=== PATIENT | female | born 1975 | race Caucasian/White ===

== ENCOUNTER → 2016-09-15 | Outpatient (CLI) | payer OTHER ==
--- NOTE | 2016-09-15 15:38 | NM ---
EXAMINATION TYPE: NM hepatobiliary w EF DATE OF EXAM: 09/15/2016 3:12 PM COMPARISON: Ultrasound abdomen October 14, 2013 HISTORY: Right upper quadrant pain per order. Additional symptoms of epigastric pain, heartburn and r eflux-like symptoms, nausea and diminished appetite all per patient. TECHNIQUE: After the intravenous administration of 5.1 mCi Tc 99m Mebrofenin hepatobiliary scintigrap hy is performed. Immediate images post injection. FINDINGS: There is satisfactory initial accumulation of tracer by the liver. The gallbladder is visualized wit hin 10 minutes. The small bowel activity is noted within 35 minutes. At one hour 8 ounces of oral e nsure plus is given to mimic CCK and gallbladder ejection fraction is calculated at 41 %, in the norm al range. Therefore there is no scintigraphic evidence of cystic or common bile duct obstruction to suggest acute cholecystitis or gallbladder dyskinesia. IMPRESSION: Exam is within normal limits.
== END | disposition home or self-care (01) ==
LOC: RADNMMAIN 13:01
PROVIDERS: ATTEND Internal Medicine
DX: R10.11 Right upper quadrant pain (principal)
CPT/HCPCS: 78226; A9537

== ENCOUNTER → 2016-11-21 | Outpatient (CLI) | payer OTHER | LOC: LABWHC1 14:11 | PROVIDERS: ATTEND Internal Medicine Endocrinology, Diabetes & Metabolism | DX: E03.9 Hypothyroidism, unspecified (principal) | CPT/HCPCS: 36415; 84439; 84443 ==

== ENCOUNTER → 2016-12-22 | Day surgery (SDC) | payer OTHER ==
[~2016-12-22] MED LIST: ALPRAZolam 0.25 MG TAB ONE; LIDOCAINE 1% INJ 10MG/ML (20 ML MDV) ONE; LIDOCAINE 1%-EPI 1:100,000 20 ML VIAL ONE; SODIUM BICARB 4% 5 ML VIAL (0.48 MEQ/ML) ONE
--- NOTE | 2016-12-22 09:46 | USB ---
EXAMINATION TYPE: US biopsy breast VAD LT DATE OF EXAM: 12/22/2016 8:42 AM CLINICAL HISTORY: R92.8 Abn mammogram. TECHNIQUE: Ultrasound guided core biopsy of left breast. COMPARISON: Previous ultrasound examination dated 12/15/2016. FINDINGS: The procedure of ultrasound guided core biopsy was explained to the patient. Benefits, alternatives, and risks were discussed. An informed consent was then obtained. The patient was placed in supine positioning for imaging and for the procedure. The overlying skin was prepped and draped in usual sterile fashion. Lidocaine buffered with bicarbonate was used as anesthetic into the skin and subcutaneous tissue up to area of concern in the left breast. A fidel was made with surgical scalpel. Under ultrasound guidance, a 12-gauge vacuum assisted biopsy gun device was used to obtain 8 core samples. Following this, a biopsy clip was left in lesion. The patient tolerated the procedure well without any immediate complication. The patient was kept in the radiology department for short stay after the procedure and then discharged home in stable condition. IMPRESSION: SUCCESSFUL, UNCOMPLICATED ULTRASOUND GUIDED CORE BIOPSY OF AREA OF CONCERN IN THE LEFT BREAST, FULL PATHOLOGY RESULTS TO FOLLOW. Pathology Results: Benign BREAST, LEFT, STEREOTACTIC CORE BIOPSY: FIBROCYSTIC CHANGE, STROMAL FIBROSIS, CYST FORMATION, APOCRINE METAPLASIA, ADENOSIS, COLUMNAR CELL CHANGE AND DUCT HYPERPLASIA. FEATURES CONSISTENT WITH FIBROADENOMA. Recommendation Follow up mammogram of the left breast in 6 months. ALBAN
== END ==
LOC: RADUSWWP 07:16
PROVIDERS: ATTEND Surgery
DX: N60.02 Solitary cyst of left breast (principal); N60.32 Fibrosclerosis of left breast; N60.82 Other benign mammary dysplasias of left breast; N60.22 Fibroadenosis of left breast; N60.92 Unspecified benign mammary dysplasia of left breast; D24.2 Benign neoplasm of left breast
CPT/HCPCS: 88305; 19083; J2001

== ENCOUNTER → 2017-02-06 | Outpatient (CLI) | payer OTHER | END | disposition home or self-care (01) | LOC: LABWHC1 09:33 | PROVIDERS: ATTEND Internal Medicine Endocrinology, Diabetes & Metabolism | DX: E04.2 Nontoxic multinodular goiter (principal) | CPT/HCPCS: 36415; 84443 ==

== ENCOUNTER → 2017-07-17 | Outpatient (CLI) | payer OTHER | END | disposition home or self-care (01) | LOC: LABWHC1 14:29 | PROVIDERS: ATTEND Internal Medicine Endocrinology, Diabetes & Metabolism | DX: E03.8 Other specified hypothyroidism (principal) | CPT/HCPCS: 36415; 84443 ==

== ENCOUNTER → 2018-01-16 | Outpatient (CLI) | payer BC | END | disposition home or self-care (01) | LOC: LABWHC1 13:57 | PROVIDERS: ATTEND Internal Medicine Endocrinology, Diabetes & Metabolism | DX: E03.8 Other specified hypothyroidism (principal) | CPT/HCPCS: 36415; 84443 ==

== ENCOUNTER → 2018-04-18 | Outpatient (CLI) | payer BC ==
[2018-04-18 11:49] LABS: T4, Free (Free Thyroxine) 1.24 ng/dL (0.78-2.19)
== END | disposition home or self-care (01) ==
LOC: LABWHC1 10:23
PROVIDERS: ATTEND Internal Medicine Endocrinology, Diabetes & Metabolism
DX: E04.1 Nontoxic single thyroid nodule (principal)
CPT/HCPCS: 36415; 84439; 84443

== ENCOUNTER → 2018-07-11 | Outpatient (CLI) | payer BC ==
--- NOTE | 2018-07-11 14:43 | MM ---
Reason for exam: additional evaluation requested from prior study. Last mammogram was performed 1 year ago. History: Family history of breast cancer in cousin at age 47. Benign US biopsy breast VAD LT of the left breast, December 22, 2016. Took hormonal contraceptives for 2 years beginning at age 41. Physical Findings: Nurse did not find any significant physical abnormalities on exam. MG 3D Diag Mammo W/Cad MAY Bilateral CC and MLO view(s) were taken. Prior study comparison: July 05, 2017, bilateral MG diagnostic mammo w CAD MAY. July 06, 2016, bilateral MG work up mamm w CAD BILAT. The breast tissue is heterogeneously dense. This may lower the sensitivity of mammography. Manage breast painon a clinical basis. These results were verbally communicated with the patient and result sheet given to the patient on 07/11/18. No significant changes when compared with prior studies. ASSESSMENT: Benign, BI-RAD 2 RECOMMENDATION: Routine screening mammogram of both breasts in 1 year.
== END | disposition home or self-care (01) ==
LOC: RADMAMWWP 13:26
PROVIDERS: ATTEND Internal Medicine
DX: R92.8 Other abnormal and inconclusive findings on diagnostic imaging of breast (principal)
CPT/HCPCS: 77062; 77066

== ENCOUNTER → 2018-09-30 | Outpatient (CLI) | payer BC | END | disposition home or self-care (01) | LOC: LABWHC1 13:17 | PROVIDERS: ATTEND Internal Medicine Endocrinology, Diabetes & Metabolism | DX: E03.8 Other specified hypothyroidism (principal) | CPT/HCPCS: 36415; 84443 ==

== ENCOUNTER → 2018-10-07 | Outpatient (CLI) | payer BC ==
--- NOTE | 2018-10-07 07:44 | US ---
EXAMINATION TYPE: US thyroid st tissue head/neck DATE OF EXAM: 10/07/2018 COMPARISON: CLINICAL HISTORY: E04.1 Nontoxic single thyroid nodule. Follow up nodules. No hx of bx. On thyroid meds. GLAND SIZE: Right Lobe: 5.1 x 1.9 x 1.1 cm Overall Parenchyma: homogenous Left Lobe: 5.2 x 1.7 x 1.2 cm Overall Parenchyma: homogeneous Isthmus Thickness: 0.3 cm NODULES RIGHT: # of nodules measured on right: 2 1. 1.0 X 0.9 x 0.7 cm hypoechoic nodule at the upper pole with well-defined margins. This nodule i s wider than tall and shows intranodular vascularity. Prior size: 0.8 x 0.6 x 0.8 cm 2. 0.4 X 0.4 x 0.2 cm cystic nodule at the mid pole with well-defined margins. This nodule is wider than tall and shows no intranodular vascularity. Prior size: 0.2 cm LEFT: # of nodules measured on left: 0 ISTHMUS: # of nodules measured in the isthmus: 0 1. Previous nodule not visualized on today's exam Bilateral neck scanned, no evidence of lymphadenopathy. Bilateral enlarged thyroid lobes. IMPRESSION: 1. Bilateral thyroid enlargement. 2. Thyroid nodules nonspecific as discussed above.
== END | disposition home or self-care (01) ==
LOC: RADUSWWP 07:04
PROVIDERS: ATTEND Internal Medicine Endocrinology, Diabetes & Metabolism
DX: E04.2 Nontoxic multinodular goiter (principal)
CPT/HCPCS: 76536

== ENCOUNTER → 2018-12-03 | Outpatient (CLI) | payer BC ==
--- NOTE | 2018-12-03 13:12 | XR ---
EXAMINATION TYPE: XR chest 2V DATE OF EXAM: 12/03/2018 COMPARISON: NONE HISTORY: Chest pain TECHNIQUE: Frontal and lateral views of the chest are obtained. FINDINGS: There is no focal air space opacity. No evidence for pneumothorax. No pleural effusion. The cardiac silhouette size is within normal limits. The osseous structures are grossly intact. IMPRESSION: 1. No acute cardiopulmonary process.
[2018-12-04 14:22] LABS: Alt. alternata IgE Class CLASS 0; Alternaria alternata IgE <0.35 kU/L (<0.35); Asperg. fumagatus IgE <0.35 kU/L (<0.35); Asperg. fumagatus IgE Class CLASS 0; Candida albicans IgE Class CLASS 0; Clad herbarum IgE <0.35 kU/L (<0.35); Latex IgE Class CLASS 0; Mucor racemosus IgE <0.35 kU/L (<0.35); Mucor racemosus IgE Class CLASS 0; Penicillium chrysogenum IgE <0.35 kU/L (<0.35); Penicillium chrysogenum IgE Cl CLASS 0
== END | disposition home or self-care (01) ==
LOC: LABWHC1 12:33
PROVIDERS: ATTEND Internal Medicine Sleep Medicine
DX: R05 Cough (principal); B44.1 Other pulmonary aspergillosis
CPT/HCPCS: 36415; 71046; 82785; 86001; 86003; 86606; 86609

== ENCOUNTER → 2019-01-02 | Outpatient (CLI) | payer BC ==
[2019-01-02 19:53] LABS: T4, Free (Free Thyroxine) 1.1 ng/dL (0.80-1.80)
== END | disposition home or self-care (01) ==
LOC: LABWHC1 12:09
PROVIDERS: ATTEND Internal Medicine Endocrinology, Diabetes & Metabolism
DX: E04.1 Nontoxic single thyroid nodule (principal)
CPT/HCPCS: 36415; 84439; 84443

== ENCOUNTER → 2019-01-09 | Outpatient (CLI) | payer BC ==
--- NOTE | 2019-01-09 12:20 | MM ---
Reason for exam: clinical finding. Last mammogram was performed 6 months ago. History: Family history of breast cancer in cousin at age 47. Benign US biopsy breast VAD LT of the left breast, December 22, 2016. Took hormonal contraceptives for 2 years beginning at age 41. Physical Findings: Nurse did not find any significant physical abnormalities on exam. MG 3D Diag Mammo W/Cad MAY Bilateral CC and MLO view(s) were taken. XCCL view(s) were taken of the left breast. Prior study comparison: July 11, 2018, bilateral MG 3d diag mammo w/cad MAY. July 05, 2017, bilateral MG diagnostic mammo w CAD MAY. The breast tissue is extremely dense which could obscure a lesion on mammography. There are benign appearing round oval circumscribed stable right masses, prior history of cysts. Left biopsy marker. These results were verbally communicated with the patient and result sheet given to the patient on 01/09/19. ASSESSMENT: Benign, BI-RAD 2 RECOMMENDATION: Routine screening mammogram of both breasts in 1 year. Manage patient on a clinical basis.
== END | disposition home or self-care (01) ==
LOC: RADMAMWWP 10:56
PROVIDERS: ATTEND Obstetrics & Gynecology
DX: N64.4 Mastodynia (principal)
CPT/HCPCS: 77062; 77066

== ENCOUNTER → 2019-06-26 | Outpatient (CLI) | payer OTHER ==
[2019-06-26 09:53] LABS: T4, Free (Free Thyroxine) 0.93 ng/dL (0.78-2.19)
== END | disposition home or self-care (01) ==
LOC: LABWHC1 09:01
PROVIDERS: ATTEND Internal Medicine Endocrinology, Diabetes & Metabolism
DX: E03.8 Other specified hypothyroidism (principal); E04.1 Nontoxic single thyroid nodule
CPT/HCPCS: 36415; 84439; 84443

== ENCOUNTER → 2019-07-18 | Day surgery (SDC) | payer OTHER ==
[2019-07-16 11:10] VITALS: BMI 27.2
[~2019-07-18] MED LIST changes: -ALPRAZolam 0.25 MG TAB ONE; +LACTATED RINGERS 1,000 ML IV SCH; +LIDOCAINE 1% 20 ML VIAL (10MG/ML) FOR IV START INTRADERMA ONE; -LIDOCAINE 1%-EPI 1:100,000 20 ML VIAL ONE; +PROPOFOL 10 MG/ML 20 ML VIAL IV ONE; -SODIUM BICARB 4% 5 ML VIAL (0.48 MEQ/ML) ONE
[2019-07-18 09:38] VITALS: TEMP 98.3
--- NOTE | 2019-07-18 10:19 | P.GSHP ---
History of Present Illness H&P Date: 07/18/19 Chief Complaint: GERD, dysphagia This is a 44-year-old female who's had complaints of GERD and dysphagia. Patient rents today for EGD. Past Medical History Past Medical History: Thyroid Disorder Additional Past Medical History / Comment(s): SEASONAL ALLERGIES. HAS "CHOKING SENSATION" IN THROAT History of Any Multi-Drug Resistant Organisms: None Reported Past Surgical History: Hysterectomy Past Anesthesia/Blood Transfusion Reactions: No Reported Reaction Smoking Status: Former smoker - Past Family History Mother Family Medical History: No Reported History Medications and Allergies Home Medications Medication Instructions Recorded Confirmed Type Levothyroxine Sodium [Synthroid] 12.5 mcg PO DAILY 07/16/19 07/16/19 History Levothyroxine Sodium [Synthroid] 25 mcg PO DAILY 07/16/19 07/18/19 History Liothyronine Sodium [Cytomel] 5 mcg PO DAILY 07/16/19 07/16/19 History Montelukast [Singulair] 10 mg PO HS 07/16/19 07/18/19 History Topiramate [Topamax] 25 mg PO BID 07/16/19 07/18/19 History Allergies Allergy/AdvReac Type Severity Reaction Status Date / Time No Known Allergies Allergy Verified 07/16/19 11:03 Surgical - Exam Vital Signs Temp Pulse Resp BP Pulse Ox 98.3 F 69 16 122/64 98 07/18/19 09:28 07/18/19 09:28 07/18/19 09:28 07/18/19 09:28 07/18/19 09:28 - General well developed, well nourished, no distress - Eyes PERRL - ENT normal pinna - Neck no masses - Respiratory normal expansion - Cardiovascular Rhythm: regular - Abdomen Abdomen: soft, non tender Assessment and Plan Assessment: GERD, dysphagia. We'll perform EGD.
--- NOTE | 2019-07-18 10:28 | P.OP ---
Date of Procedure: 07/18/19 Preoperative Diagnosis: Dysphagia Postoperative Diagnosis: Mild antral gastritis Mild esophagitis Procedure(s) Performed: EGD Anesthesia: MAC Surgeon: Adiel Perera Pathology: other (Antrum, esophagus) Condition: stable Disposition: PACU Description of Procedure: The patient's placed on the endoscopy table in the lateral position. She received IV sedation. The gastroscope placed oropharynx passed in the esophagus and stomach. Scope was then placed through the pylorus. The first and second portion duodenum appeared normal. Scope was then brought back the antrum and this appeared mildly inflamed. A biopsy was performed. The scope was then retroflexed remainder stomach appeared normal. The GE junction was at 40 cm. There is no evidence of any significant hiatal hernia. The distal esophagus appeared mildly inflamed a biopsies performed. The proximal esophagus appeared normal. Scope was withdrawn for patient.
[2019-07-18 10:52] VITALS: BP 113/79; PULSE 79; RESP 18
--- NOTE | 2019-07-18 13:52 | NM ---
EXAMINATION TYPE: NM hepatobiliary w CCK DATE OF EXAM: 07/18/2019 COMPARISON: NONE HISTORY: 44-year-old female with GERD, indigestion TECHNIQUE: After the intravenous administration of 5.2 mCi Tc 99m Mebrofenin hepatobiliary scintigrap hy is performed. Immediate images post injection. FINDINGS: There is satisfactory initial accumulation of tracer by the liver. The gallbladder is visualized wit hin 10 minutes. The small bowel activity is noted after Kinevac administration after the initial one hour. Patient was injected with 1.6 mcg of Kinevac, and gallbladder ejection fraction is calculated at 27 %, diminished. IMPRESSION: 1. No scintigraphic evidence for acute cholecystitis. 2. Diminished gallbladder ejection fraction can be seen in the setting of chronic cholecystitis and b iliary dyskinesia.
== END ==
LOC: ORWHC2ENDO 08:56
PROVIDERS: ATTEND Surgery
DX: K29.50 Unspecified chronic gastritis without bleeding (principal); B96.81 Helicobacter pylori [H. pylori] as the cause of diseases classified elsewhere; K21.0 Gastro-esophageal reflux disease with esophagitis; R94.8 Abnormal results of function studies of other organs and systems; E07.9 Disorder of thyroid, unspecified; J45.909 Unspecified asthma, uncomplicated; F39 Unspecified mood [affective] disorder; Z90.710 Acquired absence of both cervix and uterus; Z87.891 Personal history of nicotine dependence; Z79.899 Other long term (current) drug therapy; Z79.890 Hormone replacement therapy
CPT/HCPCS: 43239; 88305; 88342; 78227; A9537; J2805; J2001; J2704

== ENCOUNTER → 2019-08-12 | Outpatient (CLI) | payer OTHER ==
[2019-08-12 18:02] LABS: Basophils % (A) 0 %; Eosinophils # (A) 0.1 k/uL (0-0.7); Eosinophils % (A) 1 %; HCT 41.3 % (34.0-46.0); HGB 14.4 gm/dL (11.4-16.0); Lymphocytes # (A) 2.2 k/uL (1.0-4.8); Lymphocytes % (A) 37 %; MCH 32.3 pg (25.0-35.0); MCHC 34.9 g/dL (31.0-37.0); MCV 92.5 fL (80.0-100.0); Mean Platelet Volume 6.5; Monocytes # (A) 0.4 k/uL (0-1.0); Monocytes % (A) 6 %; Neutrophils # (A) 3.3 k/uL (1.3-7.7); Neutrophils % (A) 54 %; Platelet Count 258 k/uL (150-450); RBC 4.46 m/uL (3.80-5.40); RDW 12.1 % (11.5-15.5)
== END | disposition home or self-care (01) ==
LOC: LABWHC1 16:38
PROVIDERS: ATTEND Internal Medicine Sleep Medicine
DX: R06.02 Shortness of breath (principal)
CPT/HCPCS: 36415; 85025

== ENCOUNTER 2019-08-18 06:32 | Day surgery (SDC) | payer OTHER ==
[2019-08-14 10:55] VITALS: BMI 25.0
[~2019-08-18 06:32] MED LIST changes: +DEXAMETHASONE SOD PHOSPHATE 10 MG/ML 1 ML VIAL IV ONE; +HEPARIN SODIUM,PORCINE 5,000 UNIT/ML 1 ML VIAL SQ ONE; -LIDOCAINE 1% 20 ML VIAL (10MG/ML) FOR IV START INTRADERMA ONE; +LIDOCAINE 1% 20 ML VIAL (10MG/ML) FOR IV START INTRADERMA PRN; -LIDOCAINE 1% INJ 10MG/ML (20 ML MDV) ONE; +MIDAZOLAM 2 MG/2 ML VIAL IV PRN; +ONDANSETRON 4 MG/2 ML VIAL IVP ONE; -PROPOFOL 10 MG/ML 20 ML VIAL IV ONE; +SCOPOLAMINE 1.5MG/72HR PATCH TRANSDERM ONE
[2019-08-18] MEDS ORDERED: NEOSTIGMINE 1 MG/ML 10 ML VIAL ONE (07:48)
[2019-08-18] MEDS ORDERED: KETOROLAC 30 MG/ML 1 ML VIAL ONE (07:48)
[2019-08-18] MEDS ORDERED: MIDAZOLAM 2 MG/2 ML VIAL ONE (07:48)
[2019-08-18] MEDS ORDERED: SUCCINYLCHOLINE CHLORIDE 100 MG/5 ML SYR IV ONE (07:48)
[2019-08-18] MEDS ORDERED: LIDOCAINE 1% INJ 10MG/ML (20 ML MDV) ONE (07:48)
[2019-08-18] MEDS ORDERED: fentaNYL (PF) 50 MCG/ML 2 ML AMP ONE (07:48)
[2019-08-18] MEDS ORDERED: GLYCOPYRROLATE 0.2 MG/ML 2 ML VIAL ONE (07:48)
[2019-08-18] MEDS ORDERED: ROCURONIUM BROMIDE 10 MG/ML 10 ML VIAL IV ONE (07:48)
[2019-08-18] MEDS ORDERED: PROPOFOL 10 MG/ML 20 ML VIAL IV ONE (07:48)
--- NOTE | 2019-08-18 07:56 | P.GSHP ---
History of Present Illness H&P Date: 08/18/19 Chief Complaint: Right upper quadrant pain Is a 41-year-old female who presents today for laparoscopic cholestatic. Patient's echo his right upper quadrant pain. Her recent HIDA scan shows abnormal ejection fraction. Past Medical History Past Medical History: Thyroid Disorder Additional Past Medical History / Comment(s): SEASONAL ALLERGIES, recent dx. h pylori-finishing antibiotics for History of Any Multi-Drug Resistant Organisms: None Reported Past Surgical History: Hysterectomy Additional Past Surgical History / Comment(s): recent EGD Past Anesthesia/Blood Transfusion Reactions: No Reported Reaction Past Psychological History: No Psychological Hx Reported Smoking Status: Former smoker Past Alcohol Use History: Rare Additional Past Alcohol Use History / Comment(s): QUIT SMOKING 2010 Past Drug Use History: None Reported - Past Family History Mother Family Medical History: No Reported History Medications and Allergies Home Medications Medication Instructions Recorded Confirmed Type Levothyroxine Sodium [Synthroid] 12.5 mcg PO DAILY 07/16/19 08/14/19 History Levothyroxine Sodium [Synthroid] 25 mcg PO DAILY 07/16/19 08/14/19 History Liothyronine Sodium [Cytomel] 5 mcg PO DAILY 07/16/19 08/14/19 History Montelukast [Singulair] 10 mg PO HS 07/16/19 08/14/19 History Topiramate [Topamax] 25 mg PO BID 07/16/19 08/14/19 History Amoxicillin 1,000 mg PO Q12HR 08/14/19 08/14/19 History Clarithromycin [Biaxin] 500 mg PO Q12HR 08/14/19 08/14/19 History Omeprazole [PriLOSEC] 20 mg PO AC-BID 08/14/19 08/14/19 History Allergies Allergy/AdvReac Type Severity Reaction Status Date / Time No Known Allergies Allergy Verified 08/14/19 10:52 Surgical - Exam Vital Signs Temp Pulse Resp BP Pulse Ox 97.8 F 7 L 18 112/63 97 08/18/19 07:04 08/18/19 07:04 08/18/19 07:04 08/18/19 07:04 08/18/19 07:04 - General well developed, well nourished, no distress - Eyes PERRL - ENT normal pinna - Neck no masses - Respiratory normal expansion - Cardiovascular Rhythm: regular - Abdomen Abdomen: soft, non tender Assessment and Plan Assessment: Right quadrant pain Chronic cholecystitis We'll perform laparoscopic cholecystectomy.
[2019-08-18] MEDS ORDERED: BUPIVACAIN-EPI 0.25%-1:200,000 30 ML VIAL SQ ONE (08:16)
[2019-08-18 08:48] VITALS: RESP 16; TEMP 97.5
--- NOTE | 2019-08-18 08:54 | P.OP ---
Date of Procedure: 08/18/19 Preoperative Diagnosis: Cholecystitis Postoperative Diagnosis: Cholecystitis Procedure(s) Performed: Laparoscopic cholecystectomy Anesthesia: ARIANNA Surgeon: Adiel Perera Estimated Blood Loss (ml): 5 Pathology: other (Gallbladder) Condition: stable Disposition: PACU Description of Procedure: The patient was placed on the operating table. The patient received a general endotracheal tube anesthesia. The patients abdomen was prepped and draped in the usual sterile fashion. Through an infraumbilical stab incision, the fascia of the anterior abdominal wall was grasped with a pair of Kochers and then the Veress needle was placed in the peritoneal cavity. Position of the Veress needle was confirmed with positive drop test. The abdomen was then insufflated. After adequate insufflation, the 10 mm trocar was placed in the peritoneal cavity. Following this the laparoscope was placed in the peritoneal cavity. The patient was placed in the head-up, right side up position and then a 5 mm trocar was placed in the right lateral and right subcostal position under direct visualization. A 8 mm trocar was placed in the epigastric position. The gallbladder was grasped in the fundus and infundibulum. Traction on the gallbladder was placed in the lateral and the cephalad positions. The triangle of Calot was visualized.. The cystic duct was bluntly dissected until the union of the cystic duct and common bile duct was seen. A critical view of safety was achieved. The cystic duct was then divided and sealed with the Harmonic scissors. A PDS Endoloop was then placed throughout the cystic duct stump. The cystic artery divided and sealed with the Harmonic scissors. The gallbladder was then removed from the liver bed using Harmonic scissors. The gallbladder was then extracted through the epigastric port site. Operative field was checked for any bleeding spots and Harmonic scissors was used to coagulate the liver bed. The abdomen was irrigated. The trocars were removed. The skin was closed using interrupted 3-0 Vicryl suture. Dermabond dressing were applied. The patient tolerated the procedure well.
[2019-08-18] MEDS: HYDROmorphone 0.5 MG/0.5 ML SYRINGE IVP PRN ×2 (08:59→09:10)
[2019-08-18] MEDS ORDERED: LACTATED RINGERS 1,000 ML IV ONE ×2 (09:00)
[2019-08-18] MEDS ORDERED: HYDROcodone/APAP 5-325MG 1 EACH TAB PO ONE (10:22)
[2019-08-18 11:24] VITALS: BP 108/73; PULSE 78
== END 2019-08-18 11:45 | disposition home or self-care (01) ==
LOC: OR 06:32
PROVIDERS: ATTEND Surgery
DX: K81.1 Chronic cholecystitis (principal); K82.8 Other specified diseases of gallbladder; G43.909 Migraine, unspecified, not intractable, without status migrainosus; E07.9 Disorder of thyroid, unspecified; J30.2 Other seasonal allergic rhinitis; Z79.890 Hormone replacement therapy; Z79.899 Other long term (current) drug therapy; Z90.710 Acquired absence of both cervix and uterus; Z87.891 Personal history of nicotine dependence
CPT/HCPCS: 88304; 47562; J2250; J1644; J1100; J2710; J0690; J2405; J2001; J3010; J1885; J0330; J2704; J1170

== ENCOUNTER → 2020-03-25 | Outpatient (CLI) | payer OTHER ==
--- NOTE | 2020-03-26 10:14 | MM ---
Reason for exam: screening (asymptomatic). Last mammogram was performed 1 year and 2 months ago. History: Family history of breast cancer in cousin at age 47. Benign US biopsy breast VAD LT of the left breast, December 22, 2016. Took hormonal contraceptives for 2 years beginning at age 41. Physical Findings: A clinical breast exam by your physician is recommended on an annual basis and results should be correlated with mammographic findings. MG Screening Mammo w CAD Bilateral CC and MLO view(s) were taken. XCCL view(s) were taken of the right breast. Prior study comparison: January 09, 2019, bilateral MG 3d diag mammo w/cad MAY. July 11, 2018, bilateral MG 3d diag mammo w/cad MAY. The breast tissue is heterogeneously dense. This may lower the sensitivity of mammography. Stable benign calcifications. There is no discrete abnormality. No significant changes when compared with prior studies. ASSESSMENT: Benign, BI-RAD 2 RECOMMENDATION: Routine screening mammogram of both breasts in 1 year.
== END | disposition home or self-care (01) ==
LOC: RADMAMWWP 10:49
PROVIDERS: ATTEND Obstetrics & Gynecology
DX: Z12.31 Encounter for screening mammogram for malignant neoplasm of breast (principal)
CPT/HCPCS: 77067

== ENCOUNTER → 2020-04-23 | Outpatient (CLI) | payer OTHER ==
--- NOTE | 2020-04-24 05:51 | US ---
EXAMINATION TYPE: US venous doppler duplex LE RT DATE OF EXAM: 04/23/2020 2:52 PM COMPARISON: NONE CLINICAL HISTORY: 45-year-old female I82.401 DVT OF RIGHT LEG. Pain on right leg starting last night. No redness. Ankle swelling. Hx heel pain. No injury. SIDE PERFORMED: Right TECHNIQUE: The lower extremity deep venous system is examined utilizing real time linear array sonog jmi with graded compression, doppler sonography and color-flow sonography. FINDINGS: VESSELS IMAGED: External Iliac Vein (EIV) Common Femoral Vein Deep Femoral Vein Greater Saphenous Vein * Femoral Vein Popliteal Vein Small Saphenous Vein * Proximal Calf Veins (* superficial vessels) Right Leg: Negative for DVT IMPRESSION: No evidence for DVT within the right lower extremity imaged from the groin to the upper calf.
== END | disposition home or self-care (01) ==
LOC: RADUSWWP 14:35
PROVIDERS: ATTEND Podiatrist Foot & Ankle Surgery
DX: I82.401 Acute embolism and thrombosis of unspecified deep veins of right lower extremity (principal)

== ENCOUNTER → 2020-06-28 | Outpatient (CLI) | payer OTHER | END | disposition home or self-care (01) | LOC: LABWHC1 12:24 | PROVIDERS: ATTEND Internal Medicine Endocrinology, Diabetes & Metabolism | DX: E03.8 Other specified hypothyroidism (principal) | CPT/HCPCS: 36415; 84443 ==

== ENCOUNTER → 2020-07-14 | Outpatient (CLI) | payer OTHER ==
--- NOTE | 2020-07-15 07:20 | US ---
EXAMINATION TYPE: US thyroid st tissue head/neck DATE OF EXAM: 07/14/2020 COMPARISON: CLINICAL HISTORY: E04.1 Nontoxic single thyroid nodule. Follow up nodules. On thyroid meds. GLAND SIZE: Right Lobe: 4.9 x 1.8 x 1.4 cm Overall Parenchyma: homogenous Left Lobe: 5.3 x 1.8 x 1.4 cm Overall Parenchyma: homogeneous Isthmus Thickness: 0.2 cm NODULES RIGHT: # of nodules measured on right: 2 1. 1.2 X 0.9 x 0.8 cm hypoechoic nodule at the upper pole with well-defined margins. This nodule i s taller than wide and shows intranodular vascularity. Prior size: 1.0 x 0.9 x 0.7 cm. 2. 0.5 X 0.3 x 0.2 cm mixed nodule at the lower/mid pole with well-defined margins. This nodule is wider than tall and shows intranodular vascularity. Prior size: 0.4 x 0.4 x 0.2 cm LEFT: # of nodules measured on left: 0 ISTHMUS: # of nodules measured in the isthmus: 0 Bilateral neck scanned, no evidence of lymphadenopathy. IMPRESSION: Dominant nodule right lobe TR 4, follow-up in one year
== END | disposition home or self-care (01) ==
LOC: RADUSWWP 16:47
PROVIDERS: ATTEND Internal Medicine Endocrinology, Diabetes & Metabolism
DX: E04.2 Nontoxic multinodular goiter (principal)
CPT/HCPCS: 76536

== ENCOUNTER 2020-08-13 08:43 | Day surgery (SDC) | payer OTHER ==
[2020-08-13 10:16] VITALS: RESP 18; TEMP 98.3
[2020-08-13 10:54] VITALS: BP 124/75; PULSE 80
--- NOTE | 2020-08-13 14:40 | US ---
EXAMINATION TYPE: US FNA thyroid first lesion DATE OF EXAM: 08/13/2020 COMPARISON: NONE HISTORY: Thyroid nodule right. Maximal barrier technique was utilized. After informed consent, skin overlying the right right nodul e was localized with ultrasound and the overlying skin prepped and draped. Ultrasound was utilized us ing sterile technique. Lidocaine was used for local anesthesia. Five passes with a 25-gauge needle w ere made into the nodule and aspirated specimen was submitted to cytology. Following the procedure h emostasis achieved. No immediate complication. The patient discharged in stable condition. IMPRESSION: STATUS POST ULTRASOUND GUIDED FINE NEEDLE ASPIRATION OF THYROID NODULE, PATHOLOGY IS PEND ING. THIS PROCEDURE WAS PERFORMED BY THE UNDERSIGNED.
== END 2020-08-13 10:50 | disposition home or self-care (01) ==
LOC: RADPROMAIN 08:43
PROVIDERS: ATTEND Internal Medicine Endocrinology, Diabetes & Metabolism
DX: E04.1 Nontoxic single thyroid nodule (principal)
CPT/HCPCS: 10005; 88173; 88305

== ENCOUNTER → 2020-08-16 | Outpatient (CLI) | payer OTHER ==
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
== END | disposition home or self-care (01) ==
LOC: RAD 16:10
PROVIDERS: ATTEND Internal Medicine
DX: M48.07 Spinal stenosis, lumbosacral region (principal)
CPT/HCPCS: 72110

== ENCOUNTER → 2021-03-03 | Outpatient (CLI) | payer OTHER ==
--- NOTE | 2021-03-04 14:05 | US ---
EXAMINATION TYPE: US abdomen complete DATE OF EXAM: 03/03/2021 COMPARISON: 10/14/2013 CLINICAL HISTORY: R10.11 Abdominal pain. Pain gallbladder removed. EXAM MEASUREMENTS: Liver Length: 15.4 cm Gallbladder Wall: Surgically absent cm CBD: .4 cm Spleen: 10.9 cm Right Kidney: 9.0 x 3.3 x 4.1 cm Left Kidney: 11.4 x 4.4 x 3.9 cm Pancreas: Obscured by bowel gas Liver: wnl Gallbladder: Surgically absent Evidence for sonographic Hernández's sign: No CBD: wnl Spleen: wnl Right Kidney: No hydronephrosis or masses seen Left Kidney: No hydronephrosis or masses seen Upper IVC: wnl Abd Aorta: wnl The liver is homogenous. The intrahepatic portion of the IVC and proximal abdominal aorta are within normal limits. Common bile duct is unremarkable. The visualized portions of the pancreas are homog enous. The spleen is unremarkable. Kidneys are symmetric and free of hydronephrosis. No renal lesi ons are seen. IMPRESSION: Status post cholecystectomy.
== END | disposition home or self-care (01) ==
LOC: RADUSWWP 13:02
PROVIDERS: ATTEND Internal Medicine
DX: R10.11 Right upper quadrant pain (principal); Z90.49 Acquired absence of other specified parts of digestive tract
CPT/HCPCS: 76700

== ENCOUNTER → 2021-03-31 | Outpatient (CLI) | payer OTHER ==
--- NOTE | 2021-04-01 11:14 | MM ---
Reason for exam: screening (asymptomatic). Last mammogram was performed 1 year ago. History: Patient is postmenopausal. Family history of breast cancer in cousin at age 47. Benign US biopsy breast VAD LT of the left breast, December 22, 2016. Took hormonal contraceptives for 2 years beginning at age 41. Physical Findings: A clinical breast exam by your physician is recommended on an annual basis and results should be correlated with mammographic findings. MG Screening Mammo w CAD Bilateral CC and MLO view(s) were taken. Prior study comparison: March 25, 2020, bilateral MG screening mammo w CAD. January 09, 2019, bilateral MG 3d diag mammo w/cad MAY. The breast tissue is heterogeneously dense. This may lower the sensitivity of mammography. Left biopsy clip. ASSESSMENT: Benign, BI-RAD 2 RECOMMENDATION: Routine screening mammogram of both breasts in 1 year. Manage on a clinical basis with regard to bilateral breast pain. If focal or concerning, consider ultrasound.
== END | disposition home or self-care (01) ==
LOC: RADMAMWWP 07:15
PROVIDERS: ATTEND Obstetrics & Gynecology
DX: Z12.31 Encounter for screening mammogram for malignant neoplasm of breast (principal)
CPT/HCPCS: 77067

== ENCOUNTER 2021-05-13 08:46 | Day surgery (SDC) | payer OTHER ==
[2021-05-11 12:15] VITALS: BMI 26.6
[~2021-05-13 08:46] MED LIST changes: -DEXAMETHASONE SOD PHOSPHATE 10 MG/ML 1 ML VIAL IV ONE; -HEPARIN SODIUM,PORCINE 5,000 UNIT/ML 1 ML VIAL SQ ONE; -LIDOCAINE 1% 20 ML VIAL (10MG/ML) FOR IV START INTRADERMA PRN; -MIDAZOLAM 2 MG/2 ML VIAL IV PRN; -ONDANSETRON 4 MG/2 ML VIAL IVP ONE; -SCOPOLAMINE 1.5MG/72HR PATCH TRANSDERM ONE
[2021-05-13 09:19] VITALS: RESP 16; TEMP 98.9
[2021-05-13] MEDS ORDERED: PROPOFOL 10 MG/ML 20 ML VIAL IV ONE (09:33)
[2021-05-13] MEDS ORDERED: LIDOCAINE 1% INJ 10MG/ML (20 ML MDV) ONE (09:33)
--- NOTE | 2021-05-13 09:54 | P.PCN ---
Date of Procedure: 05/13/21 Procedure(s) Performed: BRIEF HISTORY: Patient is a 46-year-old pleasant female scheduled for an elective colonoscopy as a part of screening for colon cancer and family history of colon cancer. PROCEDURE PERFORMED: Colonoscopy. PREOPERATIVE DIAGNOSIS: Screening for colon cancer/family history of colon ca ncer. IV sedation per Anesthesia. PROCEDURE: After informed consent was obtained, the patient, was brought into the endoscopy unit. IV sedation was administered by Anesthesia under continuous monitoring. Digital rectal examination was normal. Initially the Olympus CF-160 flexible video colonoscope was then inserted in the rectum, gradually advanced into the cecum without any difficulty. Careful examination was performed as the scope was gradually being withdrawn. Ileocecal valve and the appendiceal orifice were visualized and appeared normal. Prep was poor and several areas of the colon there was thoroughly irrigated.. Mucosa of the cecum, ascending colon, transverse colon, descending colon, sigmoid colon, and rectum appeared normal. Retroflexion was performed in the rectum and no lesions were seen. The patient tolerated the procedure well. IMPRESSION: Normal-appearing colon from rectum to cecum with no evidence of colon rectal neoplasia . RECOMMENDATIONS: Findings of this examination were discussed with the patient the lesser family. She was advised to have a repeat screening colonoscopy every 5 years because of the family history of colon cancer..
[2021-05-13 10:22] VITALS: BP 126/86; PULSE 79
== END 2021-05-13 10:43 | disposition home or self-care (01) ==
LOC: ORWHC2ENDO 08:46
PROVIDERS: ATTEND Internal Medicine Gastroenterology
DX: Z12.11 Encounter for screening for malignant neoplasm of colon (principal)
CPT/HCPCS: J2001; J2704; G0105

== ENCOUNTER → 2021-07-07 | Outpatient (CLI) | payer OTHER ==
--- NOTE | 2021-07-07 13:39 | US ---
EXAMINATION TYPE: US kidneys/renal and bladder DATE OF EXAM: 07/07/2021 COMPARISON: NONE CLINICAL HISTORY: N39.0 Frequent and/or recurrent urinary. Recurrent UTI's EXAM MEASUREMENTS: Right Kidney: 9.8 x 3.5 x 3.8 cm Left Kidney: 10.4 x 4.9 x 3.9 cm bladder post void volume: 15.6ml Right Kidney: minimally dilated collecting system Left Kidney: no evidence of hydronephrosis Bladder: wnl Bilateral Jets seen: yes Normal Post Void Residual: yes There is no evidence for hydronephrosis at this point in time. No nephrolithiasis is seen. No olegario s are identified. The urinary bladder is anechoic. Bilateral ureteral jets are seen. IMPRESSION: Minimal fullness right renal collecting system.
== END | disposition home or self-care (01) ==
LOC: RADUSWWP 12:47
PROVIDERS: ATTEND Internal Medicine
DX: N39.0 Urinary tract infection, site not specified (principal)
CPT/HCPCS: 76770

== ENCOUNTER 2022-03-11 13:40 | Emergency (ER) | payer OTHER ==
[2022-03-11 14:48] VITALS: TEMP 98.5
[2022-03-11] MEDS ORDERED: KETOROLAC 15 MG/ML 1 ML VIAL IVP STA (15:54)
[2022-03-11] MEDS ORDERED: SODIUM CHLORIDE 0.9% 1,000 ML IV STA (15:54)
[2022-03-11] MEDS ORDERED: ONDANSETRON 4 MG/2 ML VIAL IVP STA (15:54)
[2022-03-11] MEDS ORDERED: PANTOPRAZOLE 40 MG/10 ML VIAL IVP STA (15:54)
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
[2022-03-11 16:25] LABS: Basophils % (A) 0 %; Eosinophils % (A) 0 %; HCT 46.5 % (34.0-46.0); HGB 15.7 gm/dL (11.4-16.0); Lymphocytes # (A) 1.7 k/uL (1.0-4.8); Lymphocytes % (A) 19 %; MCH 32.2 pg (25.0-35.0); MCHC 33.9 g/dL (31.0-37.0); Mean Platelet Volume 7.7; Monocytes # (A) 0.4 k/uL (0-1.0); Monocytes % (A) 5 %; Neutrophils # (A) 6.6 k/uL (1.3-7.7); Neutrophils % (A) 75 %; Platelet Count 268 k/uL (150-450); RBC 4.89 m/uL (3.80-5.40); RDW 11.8 % (11.5-15.5); WBC 8.9 k/uL (3.8-10.6)
[2022-03-11 16:27] LABS: Appearance,Urine Clear (Clear); Bilirubin,Urine Negative (Negative); Blood,Urine Negative (Negative); Color,Urine Light Yellow; Glucose,Urine (UA) Negative (Negative); Ketones,Urine Negative (Negative); Leukocyte Esterase,Urine Negative (Negative); Nitrite,Urine Negative (Negative); PH, Urine 6.5 (5.0-8.0); Protein,Urine Negative (Negative); Specific Gravity,Urine 1.003 (1.001-1.035); Urobilinogen,Urine <2.0 mg/dL (<2.0)
[2022-03-11 16:28] VITALS: RESP 18
--- NOTE | 2022-03-11 17:01 | CT ---
EXAMINATION TYPE: CT abdomen pelvis w con DATE OF EXAM: 03/11/2022 COMPARISON: None HISTORY: RLQ pain, nausea CT DLP: 940.2 mGycm Automated exposure control for dose reduction was used. CONTRAST: Performed with IV Contrast, patient injected with 100 mL of Isovue 300. Images obtained from the diaphragm to the floor the pelvis with IV contrast. Lung bases are clear. No pleural effusion. Heart size is fairly normal. No pericardial effusion. Liver spleen and stomach pancreas appear intact. The bile ducts are not dilated. Gallbladder is absen t. There is no adrenal mass. Kidneys show satisfactory contrast opacification. There is no hydronephr osis. Delayed images show normal renal excretion. There is no retroperitoneal adenopathy. Appendix is medial and appears normal. The bladder distends smoothly. There is 9 mm calculus in the urinary blad deepa on the left side. No inguinal hernia. No free fluid in the pelvis. The lumbar vertebra. Tach. No compression fracture. There is vacuum disc at L5-S1. Posterior elements are intact. The hip joints are intact. Pelvic ring is intact. Sacroiliac joints appear normal. IMPRESSION: Spondylosis at L5-S1. Normal appendix. Urinary bladder calculus.
[2022-03-11 17:20] LABS: ALT 20 U/L (4-34); AST 22 U/L (14-36); African American GFR (CKD) >90 (>60 ml/min/1.73 sqM); Alkaline Phosphatase 69 U/L (38-126); Anion Gap 7 mmol/L; Blood Urea Nitrogen 12 mg/dL (7-17); Calcium 8.9 mg/dL (8.4-10.2); Carbon Dioxide 25 mmol/L (22-30); Chloride 104 mmol/L (98-107); Glucose 85 mg/dL (74-99); Lipase 84 U/L (23-300); Non-African American GFR(CKD) >90 (>60 ml/min/1.73 sqM); Potassium 3.5 mmol/L (3.5-5.1); Sodium 136 mmol/L (137-145); Total Bilirubin 0.5 mg/dL (0.2-1.3); Total Protein 6.7 g/dL (6.3-8.2)
[2022-03-11 19:22] VITALS: BP 133/96; PULSE 68
== END 2022-03-11 19:25 | disposition home or self-care (01) ==
LOC: EC 13:40
DX: N21.0 Calculus in bladder (principal); K59.00 Constipation, unspecified; Z91.018 Allergy to other foods; Z87.891 Personal history of nicotine dependence
CPT/HCPCS: 36415; 93005; 80053; 83605; 83690; 85025; 81003; 74177; 99284; 96374; 96375; J2405; J1885; C9113; Q9967

== ENCOUNTER 2022-03-16 08:19 | Day surgery (SDC) | payer OTHER ==
[2022-03-15 13:11] VITALS: BMI 26.9
--- NOTE | 2022-03-16 08:37 | XR ---
EXAMINATION TYPE: XR KUB DATE OF EXAM: 03/16/2022 COMPARISON: CT 03-31 INDICATION: Bilateral renal stones TECHNIQUE: Single view abdomen supine view FINDINGS: There is a normal bowel gas pattern. Fecal debris is in the colon. Psoas margins are normal. No organomegaly is present. There is a calcification within left hemipelvis. Differential could include distal ureteral stone uri nary bladder stone. This correlates with the CT findings. Large renal calcifications are not identifi ed. IMPRESSION: 1. Distal left ureteral stone or urinary bladder stone.
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
[2022-03-16] MEDS ORDERED: IV FLUID CONTINUATION 1,000 ML IV ONE (09:04)
[2022-03-16] MEDS ORDERED: LIDOCAINE 1% (10MG/ML) FOR IV START INTRADERMA ONE (09:04)
[2022-03-16] MEDS ORDERED: ONDANSETRON 4 MG/2 ML VIAL ONE (09:06)
[2022-03-16] MEDS ORDERED: DEXAMETHASONE SOD PHOSPHATE 4 MG/ML 1 ML VIAL IVP ONE (09:10)
[2022-03-16] MEDS ORDERED: MIDAZOLAM 2 MG/2 ML VIAL IVP ONE (09:41)
[2022-03-16] MEDS ORDERED: LIDOCAINE 2% INJ 20 MG/ML (2 ML VIAL) ONE (10:26)
[2022-03-16] MEDS ORDERED: fentaNYL (PF) 50 MCG/ML 2 ML AMP ONE (10:26)
[2022-03-16] MEDS ORDERED: MIDAZOLAM 2 MG/2 ML VIAL ONE (10:26)
[2022-03-16] MEDS ORDERED: PROPOFOL 10 MG/ML 20 ML VIAL IV ONE (10:26)
[2022-03-16] MEDS ORDERED: SUCCINYLCHOLINE CHLORIDE 100 MG/5 ML SYR IV ONE (10:26)
[2022-03-16] MEDS ORDERED: IOPAMIDOL-370 50ML BTL IRRIGATION ONE (10:45)
[2022-03-16] MEDS ORDERED: LACTATED RINGERS 1,000 ML IV ONE ×2 (11:20)
[2022-03-16 11:35] VITALS: TEMP 97.2
--- NOTE | 2022-03-16 11:35 | FL ---
Fluoroscopy INDICATION: Pain distal left ureteral stone FINDINGS: Fluoroscopy time: 18 seconds. Images obtained: 7. IMPRESSIONS: 1. Documentation of fluoroscopy.
[2022-03-16 11:48] VITALS: RESP 16
--- NOTE | 2022-03-16 11:50 | P.OP ---
Date of Procedure: 03/16/22 Preoperative Diagnosis: Bladder calculus Postoperative Diagnosis: Left ureteral calculus Procedure(s) Performed: Cystoscopy, bilateral retrograde pyelograms, left ureteroscopy with Holmium laser lithotripsy and stone basketing Anesthesia: ARIANNA Surgeon: Shantanu Mckay Estimated Blood Loss (ml): 0 IV fluids (ml): 700 Pathology: other (Calculus fragments, some for chemical analysis) Condition: stable Disposition: PACU Indications for Procedure: The patient is a 47-year-old white female with no prior history of urolithiasis. She now presents with a two-week history of bilateral flank pain and right upper quadrant abdominal pain. She reports dysuria and urinary urgency. A CT scan performed on 03/11/2022 showed no evidence of hydronephrosis. A 9 mm calculus was seen within the bladder on the left side, though it is possible that the calculus resides within the left distal ureter at the UVJ. Preoperative KUB x-ray suggest that the calculus is still there and is located within the left distal ureter at the UVJ. Operative Findings: 5 x 9 mm left distal ureteral calculus, fragmented and removed completely. Description of Procedure: The patient was taken to the operating room and placed in the dorsolithotomy position, with legs supported in Jean Carlos stirrups. The external genitalia was prepped and draped sterilely. The 30 lens was used to introduce the 21-Wallisian Christine cystoscopic sheath through the urethra and into the bladder under direct vision. The bladder was examined in its entirety. Both ureteral orifices were normal anatomic location and configuration, and clear urine effluxed from both. No tumors or foreign bodies were seen. Using a 10-Wallisian cone-tipped catheter, bilateral retrograde pyelograms were performed. The right retrograde pyelogram was normal. The left retrograde pyelogram confirmed the presence of a calculus within the left distal ureter. The Christine semirigid ureteroscope was advanced into the bladder, and the left ureteral orifice was cannulated. The 272 micron Holmium laser probe was passed through the ureteroscope, and lithotripsy was performed. After fragmenting the calculus, most calculus fragments passed distally into the bladder. The remaining ureteral calculus fragments were removed using a 1.9-Wallisian nitinol basket. The ureter was inspected. There was no evidence of ureteral perforation. After removing the ureteroscope, the cystoscope was replaced into the bladder and all calculus fragments were removed. These were saved and sent for chemical analysis. The bladder was emptied and the cystoscope removed. The patient tolerated the procedure well and was taken to the recovery room in stable condition. DOROTHY ROCKFish Report: Procedure Acuity: Urgent Stone Size and Location: 5 x 9 mm, left distal ureter Ureteral Dilation: No Ureteral Access Sheath Used: No Stone Sent for Analysis: Yes All Stones/Fragments Were Removed with a Basket: Yes Complications: No Preoperative Antibiotics Given: Yes Stent Placed: No Discharge Medications: None
[2022-03-16] MEDS ORDERED: KETOROLAC 15 MG/ML 1 ML VIAL IVP STA (11:51)
[2022-03-16 12:42] VITALS: BP 118/74; PULSE 96
== END 2022-03-16 13:00 | disposition home or self-care (01) ==
LOC: OR 08:19
PROVIDERS: ATTEND Urology
DX: N20.1 Calculus of ureter (principal); K21.9 Gastro-esophageal reflux disease without esophagitis; E07.9 Disorder of thyroid, unspecified; Z87.442 Personal history of urinary calculi; J30.2 Other seasonal allergic rhinitis; M54.9 Dorsalgia, unspecified; Z87.891 Personal history of nicotine dependence; Z80.0 Family history of malignant neoplasm of digestive organs; Z80.9 Family history of malignant neoplasm, unspecified; Z79.890 Hormone replacement therapy; Z79.899 Other long term (current) drug therapy; Z91.018 Allergy to other foods
CPT/HCPCS: 74018; 52353; C1758; J2250; J1100; J0690; J2405; J3010; J0330; J2704; Q9967; J2001

== ENCOUNTER → 2022-04-03 | Outpatient (CLI) | payer OTHER ==
--- NOTE | 2022-04-04 09:20 | MM ---
Reason for Exam: Screening (asymptomatic). Last screening mammogram was performed 12 month(s) ago. Patient History: Menarche at age 15. First Full-Term at age 20. Hysterectomy at age 43. Postmenopausal. Hormonal Contraceptives for 2 years from age 41 until age 43. 12/22/2016, Benign Core Biopsy on the left side. Maternal cousin had breast cancer, age 47. Risk Values: Emily 5 year model risk: 0.8%. NCI Lifetime model risk: 7.6%. Prior Study Comparison: 01/09/2019 Bilateral Diagnostic Mammogram, [facility]. 03/25/2020 Bilateral Screening Mammogram, [facility]. 03/31/2021 Bilateral Screening Mammogram, [facility]. Tissue Density: The breast tissue is extremely dense which could obscure a lesion on mammography. Findings: Analyzed By CAD. There is no suspicious group of microcalcifications or new suspicious mass in either breast. Surgical clip on the left noted. Scattered benign-appearing calcifications. Overall Assessment: Benign, BI-RAD 2 Management: Screening Mammogram of both breasts in 1 year. A clinical breast exam by your physician is recommended on an annual basis and results should be correlated with mammographic findings. Electronically signed and approved by: Jonathan Robertson M.D. Radiologis
== END | disposition home or self-care (01) ==
LOC: RADMAMWWP 13:21
PROVIDERS: ATTEND Obstetrics & Gynecology
DX: Z12.31 Encounter for screening mammogram for malignant neoplasm of breast (principal)
CPT/HCPCS: 77067

== ENCOUNTER → 2022-04-26 | Outpatient (CLI) | payer OTHER ==
--- NOTE | 2022-04-27 07:20 | US ---
EXAMINATION TYPE: US kidneys/renal and bladder DATE OF EXAM: 04/26/2022 COMPARISON: CT 2021, US 2017 CLINICAL HISTORY: N20.1 CALCULUS OF URETER. Follow up kidney stone EXAM MEASUREMENTS: Right Kidney: 10.5 x 4.3 x 4.6cm Left Kidney: 11.2 x 5.2 x 4.9cm Right Kidney: wnl Left Kidney: visualized portions wnl, inferior pole limited by overlying bowel gas Bladder: wnl Bilateral Jets seen: yes Right pelvis: area to the right and superior to bladder - possible right ovary with cyst Right pelvis: elongated anechoic area to the right and superior to bladder, non vascular with 0.8cm hyperechoic area within superior portion There is no evidence for hydronephrosis at this point in time. No nephrolithiasis is seen. No olegario s are identified. The urinary bladder is anechoic. Bilateral ureteral jets are seen. IMPRESSION: 1. No evidence for hydronephrosis or nephrolithiasis sonography. 2. Right ovarian cyst. Additional elongated anechoic area could reflect additional cyst however hydro salpinx is not excluded.
== END | disposition home or self-care (01) ==
LOC: RADUSWWP 15:01
PROVIDERS: ATTEND Student in an Organized Health Care Education/Training Program
DX: N20.1 Calculus of ureter (principal)
CPT/HCPCS: 76770

== ENCOUNTER → 2023-02-08 | Outpatient (CLI) | payer OTHER ==
[2023-02-09 02:39] LABS: T4, Free (Free Thyroxine) 1.16 ng/dL (0.800-1.800)
== END | disposition home or self-care (01) ==
LOC: LABWHC1 13:29
PROVIDERS: ATTEND Internal Medicine Endocrinology, Diabetes & Metabolism
DX: E03.9 Hypothyroidism, unspecified (principal); E04.2 Nontoxic multinodular goiter
CPT/HCPCS: 36415; 84439; 84443; 84481

== ENCOUNTER → 2023-04-04 | Outpatient (CLI) | payer OTHER ==
--- NOTE | 2023-04-04 13:13 | MM ---
Reason for Exam: Screening (asymptomatic). Last screening mammogram was performed 12 month(s) ago. Patient History: Menarche at age 15. First Full-Term at age 20. Hysterectomy at age 43. Postmenopausal. Hormonal Contraceptives for 2 years from age 41 until age 43. 12/22/2016, Benign Core Biopsy on the left side. Maternal cousin had breast cancer, age 47. Risk Values: Emily 5 year model risk: 0.8%. NCI Lifetime model risk: 7.4%. Prior Study Comparison: 03/25/2020 Bilateral Screening Mammogram, [facility]. 03/31/2021 Bilateral Screening Mammogram, [facility]. 04/03/2022 Bilateral MG screening mammo w CAD, [facility]. Tissue Density: The breast tissue is heterogeneously dense. This may lower the sensitivity of mammography. Findings: Analyzed By CAD. Left breast biopsy clip. There is no suspicious group of microcalcifications or new suspicious mass in either breast. Overall Assessment: Negative, BI-RAD 1 Management: Screening Mammogram of both breasts in [address] [facility] will attempt to contact patient to return for supplemental views and ultrasound if indicated. Patient should continue monthly self-breast exams. A clinical breast exam by your physician is recommended on an annual basis. This exam should not preclude additional follow-up of suspicious palpable abnormalities. Note on Emily scores and lifetime risk: 1. A Emily score greater than 3% is considered moderate risk. If this is the case, consider specialist referral to assess eligibility for a risk reducing agent. 2. If overall lifetime risk for the development of breast cancer is 20% or higher, the patient may qualify for future screening with alternating mammogram and breast MRI. Electronically signed and approved by: Leonard Nielsen DO
== END | disposition home or self-care (01) ==
LOC: RADMAMWWP 12:28
PROVIDERS: ATTEND Obstetrics & Gynecology
DX: Z12.31 Encounter for screening mammogram for malignant neoplasm of breast (principal); Z78.0 Asymptomatic menopausal state; Z80.3 Family history of malignant neoplasm of breast
CPT/HCPCS: 77063; 77067

== ENCOUNTER → 2023-04-23 | Outpatient (CLI) | payer OTHER ==
--- NOTE | 2023-04-24 19:18 | MR ---
EXAMINATION TYPE: MR cervical spine wo con DATE OF EXAM: 04/23/2023 INDICATION: Patient age: Female; 48 years old; Reason for study: M47.22; PHH. Pain in neck into upper back, Numbness left arm COMPARISON: Radiograph 04/09/2023. TECHNIQUE: Multi planar, multi sequence imaging was performed utilizing: T1-weighted, T2-weighted, an d turbo inversion recovery imaging of the cervical spine. IV Contrast: None FINDINGS: Alignment: The cervical vertebral bodies have preserved heights. Alignment is within normal limits gi merary patient positioning. Bones: Scattered Modic endplate changes with osteophytes and disc space narrowing. Multilevel degener ative disc disease is noted and most pronounced at the C4-C7 vertebral levels. Cord: The spinal cord is unremarkable with regards to their signal intensity and morphology. Discs: Multilevel disc desiccation is present. C2-C3: No significant disc pathology. The spinal canal is patent. No neural foraminal stenosis. C3-C4: No significant disc pathology. The spinal canal is patent. Bilateral facet and uncovertebral joint arthropathy are present with mild right neural foraminal stenosis. The left neural foramen is p atent. C4-C5: A disc osteophyte complex is present which minimally narrows the ventral subarachnoid space. Bilateral facet and uncovertebral joint arthropathy are present with mild bilateral neural foraminal stenosis. C5-C6: A disc osteophyte complex is present with mild to moderate spinal canal stenosis. Bilateral f acet and uncovertebral joint arthropathy are present with moderate to severe left and mild to moderat e right neural foraminal stenosis. C6-C7: A disc osteophyte complex is present with mild spinal canal stenosis. No neural foraminal wei nosis. C7-T1: No significant disc pathology. The spinal canal is patent. No neural foraminal stenosis. Other: None. IMPRESSION: 1. No evidence for disc herniation or significant spinal canal stenosis. 2. Multilevel disc degeneration with associated osteoarthritic changes worse at C5-C6 with moderate t o severe left and mild to moderate right neural foraminal stenosis
== END | disposition home or self-care (01) ==
LOC: RADMRIMAIN 18:08
PROVIDERS: ATTEND Orthopaedic Surgery
DX: M50.122 Cervical disc disorder at C5-C6 level with radiculopathy (principal); M47.22 Other spondylosis with radiculopathy, cervical region; M99.71 Connective tissue and disc stenosis of intervertebral foramina of cervical region
CPT/HCPCS: 72141

== ENCOUNTER → 2023-07-04 | Outpatient (CLI) | payer OTHER | END | disposition home or self-care (01) | LOC: LABPAT 14:19 | PROVIDERS: ATTEND Orthopaedic Surgery | DX: Z01.812 Encounter for preprocedural laboratory examination (principal); Z22.322 Carrier or suspected carrier of Methicillin resistant Staphylococcus aureus; M47.22 Other spondylosis with radiculopathy, cervical region; M50.20 Other cervical disc displacement, unspecified cervical region; M48.02 Spinal stenosis, cervical region | CPT/HCPCS: 86850; 86900; 86901; 87070 ==

== ENCOUNTER → 2023-07-04 | Outpatient (CLI) | payer OTHER ==
--- NOTE | 2023-07-04 17:16 | US ---
EXAMINATION TYPE: US thyroid st tissue head/neck DATE OF EXAM: 07/04/2023 COMPARISON: NONE CLINICAL INDICATION: Female, 48 years old with history of E04.2 THY NODS E03.9 HYPTHY R13.10 DYSPHASI A R49.0; GLAND SIZE: Right Lobe: 5.6 x 1.5 x 1.9 cm cm Overall Parenchyma: homogenous Left Lobe: 5.7 x 1.1 x 1.7 cm cm Overall Parenchyma: homogenous Isthmus Thickness: 0.2 cm subcentimeter hypoechoic nodule noted NODULES RIGHT: # of nodules measured on right: 1. 1.5 X 1.0 x 1.5 cm, upper lateral, solid or almost completely solid, stable nodule, which is wid er than tall, with smooth margins, no echogenic foci. Prior size: 1.2 x 0.8 x 0.9 cm LEFT: No nodules ISTHMUS: No nodules Bilateral neck scanned, no evidence of lymphadenopathy. IMPRESSION: 1. Moderately suspicious nodule right lobe thyroid. Fine-needle aspiration is recommended. 2017 ACR TI-RADS LEVEL: TR-RADS 4 - Moderately Suspicious: Follow if > 1 cm, FNA if > 1.5 cm *Highest TI-RADS level nodule reported
== END | disposition home or self-care (01) ==
LOC: RADUSWWP 14:33
PROVIDERS: ATTEND Internal Medicine Endocrinology, Diabetes & Metabolism
DX: E03.9 Hypothyroidism, unspecified (principal); E04.1 Nontoxic single thyroid nodule; R13.10 Dysphagia, unspecified; R49.0 Dysphonia
CPT/HCPCS: 76536

== ENCOUNTER 2023-07-12 12:45 | Day surgery (SDC) | payer OTHER ==
[2023-07-02 12:42] VITALS: BMI 29.7
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
[~2023-07-12 12:45] MED LIST changes: +ACETAMINOPHEN TAB 500 MG TAB PO PRN; +GABAPENTIN 300 MG CAP PO PRN; -LACTATED RINGERS 1,000 ML IV SCH; +LIDOCAINE 1% (10MG/ML) FOR IV START INTRADERMA PRN; +MIDAZOLAM 2 MG/2 ML VIAL IV PRN; +ONDANSETRON 4 MG/2 ML VIAL IVP ONE; +ONDANSETRON 4 MG/2 ML VIAL IVP PRN; +TRANEXAMIC 1,000 MG/100ML-NACL 1,000 MG in SALINE 1 100ML.BAG IVPB PRN
[2023-07-12] MEDS: LACTATED RINGERS 1,000 ML IV SCH ×2 (13:33→16:10)
[2023-07-12] MEDS ORDERED: GLYCOPYRROLATE 0.2 MG/ML 2 ML VIAL ONE (16:09)
[2023-07-12] MEDS ORDERED: HYDROmorphone (PF) 1 MG/ML ONE (16:09)
[2023-07-12] MEDS ORDERED: KETAMINE HCL IN 0.9 % NACL 50 MG/5 ML SYRINGE ONE (16:09)
[2023-07-12] MEDS ORDERED: MIDAZOLAM 2 MG/2 ML VIAL ONE (16:09)
[2023-07-12] MEDS ORDERED: TRANEXAMIC 1,000 MG/100ML-NACL PREMIX BAG ONE (16:09)
[2023-07-12] MEDS ORDERED: ROCURONIUM 10 MG/ML (5 ML VIAL) IV ONE (16:09)
[2023-07-12] MEDS ORDERED: SUCCINYLCHOLINE CHLORIDE 200 MG/10 ML VIAL IV ONE (16:09)
[2023-07-12] MEDS ORDERED: PROPOFOL 10 MG/ML 20 ML VIAL IV ONE (16:09)
[2023-07-12] MEDS ORDERED: fentaNYL (PF) 50 MCG/ML 2 ML AMP ONE (16:09)
[2023-07-12] MEDS ORDERED: NEOSTIGMINE 1 MG/ML 10 ML VIAL ONE (16:09)
[2023-07-12] MEDS ORDERED: LIDOCAINE 1% INJ 10MG/ML (20 ML MDV) ONE (16:09)
--- NOTE | 2023-07-12 16:19 | P.PN ---
Progress Note - Text Progress Note Date: 07/12/23 Spoke with pt and family in Pre-op area. We discussed surgery again risks and benefits as the was unable to make previous appointments. All questions answered. We discussed the TDR and if this does not fit or issues arise we would need to fuse and they understand and are comfortable with this. We will proceed as outlined. They are ready and willing.
[2023-07-12] MEDS ORDERED: LACTATED RINGERS 1,000 ML IV ONE (17:00)
[2023-07-12] MEDS ORDERED: GELATIN SPONGE,ABSORB (LARGE) 1 EACH SPONGE TOPICAL ONE (17:13)
[2023-07-12] MEDS ORDERED: THROMBIN (BOVINE) 5,000 UNIT VIAL TOPICAL ONE (17:14)
[2023-07-12] MEDS ORDERED: HYDROcodone/APAP 5-325MG 1 EACH TAB PO PRN (18:14)
[2023-07-12] MEDS ORDERED: SENNOSIDES-DOCUSATE SODIUM 1 EACH TAB PO PRN (18:14)
[2023-07-12] MEDS ORDERED: MAGNESIUM HYDROXIDE 2,400 MG/30 ML CUP PO PRN (18:14)
[2023-07-12] MEDS: HYDROmorphone 0.5 MG/0.5 ML SYRINGE IVP PRN ×3 (18:22→19:00)
--- NOTE | 2023-07-12 18:34 | P.OP ---
Date of Procedure: 07/12/23 Preoperative Diagnosis: 1. C4 through C6 spondylosis with stenosis 2. C4 through C6 herniated nucleus pulposus 3. Left upper extremity weakness with paresthesias and radiculopathy 4. Severe neck pain Postoperative Diagnosis: 1. C4 through C6 spondylosis with stenosis 2. C4 through C6 herniated nucleus pulposus 3. Left upper extremity weakness with paresthesias and radiculopathy 4. Severe neck pain Procedure(s) Performed: 1. C4 through C6 total disc replacement transition to ACDF (90981, 85779) 2. Insertion of biomechanical devices C4-5, C5-6 (54042) use of IONM Use of IO microscope Implants: -[employer] anchors C Raul millimeter cages with 12 and 14 mm screws -MagnetOs Anesthesia: GETA Surgeon: Julio Escamilla Software Development Engineer #1: Cedrick Grayson (YENNIFER Morrow Was present and assisted with all aspects of the case from positioning to dressing placement) Estimated Blood Loss (ml): 25 IV fluids (ml): 1,100 Urine output (ml): 0 Pathology: none sent Condition: stable Disposition: PACU Indications for Procedure: Lori Betancourt is a 48 year old female presenting for evaluation of sudden onset of *Neck pain, UE radiculopathy and weakness. It was my pleasure to have seen and examined Ms. Betancourt. In our visit today we have had a chance to go over subjective complaints, physical examination findings and treatments, including the natural course history without intervention and various interventional options. The imaging demonstrates *C4-7 spondylosis with moderate to severe stenosis at these lvels causing cord impingement . On physical exam, Ms. Betancourt demonstrates *BUE weakness, paresthesias, and hypertreflexia. Neck pain with ROM. Pain that shoots down b/l UE with motion . I explained to the patient that as her condition progresses it could cause * Continued or porgressive symptoms . At this time, based on the patients imaging and physical exam, I recommend surgery in the form or a: *C4-6 total disc replacement (TDR) vs C4-7 anterior cervical discectomy and fusion (ACDF) . I discussed the risk and benefits of this procedure at length with Ms. Betancourt. The patient spouseagreed to consider pursuing the procedure mentioned above. Plan: 1. * C4-6 total disc replacement vs. anterior cervical discectomy and fusion Description of Procedure: C4-6 ACDF (Stand Alone) The patient was seen and examined in the preoperative area. All preoperative protocols were followed. Informed consent was obtained risks and benefits of the procedure were discussed at length. Risks including bleeding infection damage to the surrounding tissue and risk of re-operation were discussed with the patient. Risk of anesthesia up to and including was a discussed with the patient. These are outlined in the risk review. They were willing to accept these risks and all the risks of surgery. The patient was given a weight-based dose of antibiotics in the form of 2 g Ancef. The patient was seen and evaluated by the anesthesia team who deemed them fit for surgery. The site was marked, the patient was willing to proceed with the procedure. The patient was transferred to the operative suite by the Department of anesthesia. They were then drifted off to sleep by the department anesthesia and GETA was performed. The patient tolerated this well. Gross catheter was placed by nursing staff, a-traumatically. Once confirmation of lines and ventilation the patient was transferred to a Supine John table very carefully. All bony prominences including wrists, elbows, axilla, chest, hips, and thighs, and feet were padded very well. Special attention was paid to the genitalia, and these were padded accordingly. SCDs were placed on bilateral lower extremities and were connected. Arms were well padded and placed at their side thumbs up. Once in position, again we confirmed good ventilation capabilities and that lines were running appropriately. The patients Cervical spine was then exposed. 1010s were placed outlining the incision site. Standard alcohol was used to clean the incision site and allowed to dry. C-arm was used to bio-hamzah the patient and confirm level for incision which was marked with a skin marker. Operative briefing was performed with all teams and everyone in agreement to proceed. The patient was then prepped and draped in a normal sterile fashion. Timeout was then performed, and all parties agreed with the procedure to be performed. Transverse skin incision was then made on the right side of the patients neck 3 cm and dissection taken down to the platysma which was split transversely. Sub platysma flap was made, and interval identified between SCM and medial structures. Omohyoid was visualized and protected. Blunt dissection taken down to the anterior cervical facia which was identified. Blunt prob was then placed and lateral image taken which confirmed levels for operation. These levels were then marked with a bovi. Subperiosteal dissection of the longissimus muscles were then done over these levels identifying uncovertebral joints bilaterally. Retractor was then placed deep to these muscles and held in place with a bed arm. Starting at C4-5 Mchenry pins were placed into C4 and C5 and gentle distraction taken out over the levels. Henry rongure used to remove disc material. Operating microscope brought in for visualization. Complete discectomy performed at this level with curette, rongure and pituitary. High speed parker used to remove osteophytes anteriorly and posteriorly until PLL was identified. 6-0 up curette then used to identify the canal and resect the PLL. 2-0 and 3-0 Kerrison used then to remove PLL and disc herniation and performed b/l foraminotomies. Once good decompression accomplished, meticulous hemostasis was performed. Sizers were then placed under lateral fluoroscopy until the desired height and lordosis. Cage was then selected, packed with autograft and allograft and placed under lateral imaging. Once in good position it was tested and stable. Motors run before and after cage placement were stable. The wound was irrigated, and autograft placed lateral to the cage anteriorly for fusion. Mchenry pin was then removed from C4 and placed into C6. Gentle distraction taken out over C5-6 now. Complete discectomy done at C5-6 as described including decompression, b/l foraminotomies and PLL resection. Burring of endplates was minimal, osteophytes removed as described. Spacers were then sized and placed under lateral imaging. Cage selected, packed with graft and placed under lateral images. Once in position, meticulous hemostasis performed, and motors remained stable before and after cage placement. AP image confirmed good placement of cages. Wound was irrigated. Mchenry pins were removed and bone wax placed in their void. Meticulous hemostasis achieved. After each cage placement, screws were placed through the cage with good purchase using lateral imaging. The screws were placed inferiorly and superiorly and locked. All locking mechanisms set, and all screws had good purchase. Final AP and lateral images taken confirmed good placement of hardware and good reduction and mandaeism of height. The wound was then irrigated copiously with NSS. Surgicel placed deep in the wound. A deep drain placed out a separate incision and sewed into place. Layered closure then performed with 3-0 Vicryl in the platysma and sub-Q tissue. 4-0 Strata fix in the subcuticular tissue. The wound was then cleaned, and dried and skin glue placed. Once glue dried an Opifoam was placed. The patient was then transferred back to their hospital bed a-traumatically. The drain continued to hold suction. They were placed in a soft collar. They were then awakened by the department of anesthesia having tolerated the procedure well without complications.
[2023-07-12] MEDS: HYDROmorphone 1 MG/ML 1 ML SYRINGE IVP PRN ×2 (21:01→23:41)
[2023-07-12] MEDS: CYCLOBENZAPRINE 5 MG TAB PO PRN (23:41)
[2023-07-12] MEDS: PREGABALIN 75 MG CAP PO SCH (23:49)
[2023-07-13] MEDS: ACETAMINOPHEN TAB 325 MG TAB PO SCH ×4 (00:55→17:45)
[2023-07-13] MEDS: HYDROcodone/APAP 10-325MG 1 EACH TAB PO PRN ×2 (02:57→09:56)
[2023-07-13] MEDS: HYDROmorphone 1 MG/ML 1 ML SYRINGE IVP PRN ×3 (05:14→23:18)
[2023-07-13] MEDS ORDERED: SODIUM CHLORIDE 0.9% 500 ML 500 ML IV ONE (06:08)
[2023-07-13] MEDS: SODIUM CHLORIDE 0.9% 1,000 ML IV SCH ×2 (06:14→20:32)
[2023-07-13] MEDS: LACTATED RINGERS 1,000 ML IV SCH (06:21)
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
--- NOTE | 2023-07-13 08:10 | FL ---
EXAMINATION TYPE: FL guidance operating room, XR cervical spine 1V DATE OF EXAM: 07/12/2023 Comparison: None Clinical History: 48-year-old female ANTERIOR CERVICAL FUSION Findings: Intraoperative fluoroscopy during ACDF placement. Final images show C4-C6 ACDF. 8 images are provided . Fluoroscopy time: 23.3 seconds DAP: 0.9333 Gycm2 Impression: Intraoperative fluoroscopy as above.
[2023-07-13] MEDS: PANTOPRAZOLE 40 MG TABLET PO SCH ×2 (08:29→17:46)
[2023-07-13] MEDS: PREGABALIN 75 MG CAP PO SCH ×2 (08:29→20:26)
[2023-07-13] MEDS: LEVOTHYROXINE 125 MCG TAB PO SCH (08:31)
--- NOTE | 2023-07-13 08:35 | CT ---
EXAMINATION TYPE: CT cervical spine wo con DATE OF EXAM: 07/13/2023 COMPARISON: None HISTORY: 48-year-old female postoperative evaluation, S/P C4-C6 ADF TECHNIQUE: Contiguous axial scanning of the cervical spine without IV contrast. Coronal and sagittal reconstructions performed. CT DLP: 570 mGycm Automated exposure control for dose reduction was used. FINDINGS: No craniocervical junction anomaly, predental space widening. There is prevertebral soft tissue swell ing and foci of air relating to patient's recent surgery. Additional postsurgical change with swellin g and edema and additional air along the anterior neck soft tissues in keeping with anterior approach . Small foci of air present within the ventral epidural space at the surgical levels, status post C4- C6 ACDF. Alignment is maintained. Hardware appears uncomplicated. No evident canal compromise by CT. Some residual uncovertebral joint arthropathy is present with variable moderate neural foraminal sten oses at C3-C4 and C5-C6. There is a small cervical rib noted on the left. IMPRESSION: UNCOMPLICATED C4-C6 ACF with recent postoperative changes.
[2023-07-13 11:06] LABS: Basophils # (A) 0.03 X 10*3/uL (0.00-0.10); Basophils % (A) 0.2 %; Eosinophils # (A) 0.01 X 10*3/uL (0.04-0.35); Eosinophils % (A) 0.1 %; HCT 39.5 % (37.2-46.3); HGB 13.1 d/dL (12.0-15.0); Lymphocytes # (A) 1.31 X 10*3/uL (0.90-5.00); Lymphocytes % (A) 10.5 %; MCHC 33.2 d/dL (32.0-37.0); MCV 90.4 FL (80.0-97.0); Mean Platelet Volume 10.2 FL (9.5-12.2); Monocytes # (A) 0.82 X 10*3/uL (0.20-1.00); Monocytes % (A) 6.6 %; NRBC Per 100 WBC 0 X 10*3/uL (0.00-0.01); Neutrophils # (A) 10.31 X 10*3/uL (1.80-7.70); Neutrophils % (A) 82.4 %; Platelet Count 240 X 10*3/uL (140-440); RBC 4.37 X 10*6/uL (4.10-5.20); RDW 12.7 % (11.5-14.5)
--- NOTE | 2023-07-13 11:15 | P.DS ---
Providers Date of admission: 07/12/2023 Expected date of discharge: 07/13/23 Attending physician: Julio Escamilla DO Consults: 07/12/23 18:14 Consult Physician Routine Consulting Provider: Vic Epps Consult Reason/Comments: medical management s/p C4-C6 ACDF Do you want consulting provider notified?: Yes Primary care physician: [facility] Course: Date of admission: 07/12/2023 Date of discharge: 07/13/2023 Admission diagnosis: 1. C4 through C6 spondylosis with stenosis 2. C4 through C6 herniated nucleus pulposus 3. Left upper extremity weakness with paresthesias and radiculopathy 4. Severe neck pain Discharge diagnosis: [Same] Attending physician: Dr. Escamilla Surgical procedures: 1. C4 through C6 total disc replacement transition to ACDF Brief history: Patient is a 48-year-old female with a history of C4-C6 spondylosis with stenosis; C4-C6 herniated nucleus pulposus; severe neck pain. At this point patient has failed conservative treatment measures and has opted to proceed with a elective C4 to C6 total disc replacement transition to ACDF. Hospital course: Details of patient's surgery can be found in operative report. Patient tolerated the procedure well and was subsequently transported to orthopedic floor. Patient's orthopeidc and medical care was provided daily. Patient had daily laboratory tests performed for evaluation of overall blood counts. Patient had daily physical therapy to include strengthening range of motion as well as education with walker ambulation. Patient was noted to have a relatively uneventful postoperative course. Patient reported satisfactory pain control with oral pain medications by postoperative day 1. Patient showed satisfactory progress with physical therapy. Patient moved steadily through the program and had no difficulty meeting the goals by postoperative day 1. Given patient's otherwise satisfactory course and having met physical therapy goals, plan is to discharge patient [home] on postoperative day 1. Discharge condition/disposition: Patient will be discharged [home] in stable condition. Discharge medications: Instructions are given on resumption of patient's normal daily medications per primary care recommendation, in addition patient will be prescribed Lockney; Lockney; senna; Flexeril; Duricef. Spine Discharge and Recovery Instructions Date of Surgery: 07/12/2023 Diagnosis: 1. C4 through C6 spondylosis with stenosis 2. C4 through C6 herniated nucleus pulposus 3. Left upper extremity weakness with paresthesias and radiculopathy 4. Severe neck pain Procedure(s) Performed: 1. C4 through C6 total disc replacement transition to ACDF Medications: See medication list All medication refills should be obtained through your primary care doctor or your clinic spine surgeon. Please discuss prescription refills at your follow up appointment. Do not call the hospital for medication refills. Dressing: Leave your dressing in place for a total of 5 days post operatively. Then you may remove your dressing and leave open to air. Keep the area clean and if not able to keep area clean, then cover with sterile gauze and tape. Showering: You may shower 3 days after your procedure allowing soap and water to run over incision. Do not scrub. Do not soak. Blot dry. Follow up: Please confirm a follow up appointment with your surgeon 3 weeks post operatively. Please make an appointment to follow up with your PCP in 1-2 weeks after surgery for evaluation 3 phase, 3-week plan POST OP WEEKS 1-3 1. Lifting/carrying/pushing/pulling limited to less than 5 pounds. 2. Do not sit for longer than 15 minutes at one time. Get up and walk around. Prolonged sitting is NOT advised. If you lay down, see if you can tolerate laying down on you front (belly side) 3. Walk for periods of 15 minutes = 1 mile but no longer; do it multiple times times each day. 4. Ice your low back after activity. POST OP WEEKS 3-6 1. Lifting limited to less than 20 pounds. 2. Do not sit for longer than 30 minutes at a time. Frequently change positions. Use a sit-to stand workstation or take frequent breaks from sitting if you have returned to work. 3. Walk for 30 minutes each day. If possible, do these three or more times a day POST OP WEEKS 6+ At your 6-week appointment we will give you a physical therapy referral to focus on a core stabilization and strengthening program. You should also work on leg & buttock strengthening, hamstring & quadriceps stretching, and continue a low impact aerobic activity program such as swimming, walking, or riding a stationary bicycle. During the initial 6 weeks after your surgery, you are at the highest risk of re-injuring your spine. You should generally avoid BLTs (bending, lifting and twisting combination motions) and follow the above guidelines to reduce the chance of reinjury. You can anticipate post op appointments in our office at approximately 3 weeks and 6 weeks after your surgery. INCISION CARE: If your incision is not draining you do NOT need to cover it with a dressing. Keep your incision clean, dry and intact. In most cases, we apply skin glue, tianna or sutures to the incision at the time of surgery. This will be like a crust or have the appearance of a scab and will fall off in time on its own. The stitches or tianna need to be removed at 3 weeks post op appointment. You may begin to shower 3 days after surgery (this allows the glue to contreras well). However, please avoid scrubbing the incision site or peeling off any of the skin glue. This will ensure optimal healing of your incision. Also, during this time avoid soaking the incision area in water - this includes swimming pools, hot tubs or baths. No ointments, lotions or oils on the incision until your surgeon allows. Leave tianna, sutures or glue in place. Neurological dysfunction that comes on suddenly can also be a sign of a stroke. Below some common symptoms of a stroke are listed: B - balance difficulty such as sudden onset walking or leaning to one side - NEW E - eye problem such as sudden double vision or trouble seeing on one side - NEW F - Facial weakness or numbness on one side - NEW A - Arm or leg weakness or numbness on one side - NEW S - Slurred speech or difficulty with word finding - NEW T - Time is BRAIN! Call 911 as soon as you recognize these symptoms Diet: Consume a regular diet rich in vegetables and lean protein such as chicken or fish. You should consume in a ratio of approximately 20% fats|40% carbohydrat es|40%protein. Vegetables, sweet potatoes, brown rice or quinoa are examples of good carbohydrates. Chips, white bread, cookies and sweets/sugar are examples of bad carbohydrates. Limit your bad carbs, go wild with good carbs. "Life's Simple 7" Guidelines as per [place] [employer] These will help you reclaim your life after surgery and crop farm helper in your recovery, keeping in mind your restrictions. (1) Get Active. Physical activity can help people lose weight, control high blood pressure and cholesterol, feel emotionally better, and sleep better. (2) Control Cholesterol. Avoid a diet high in saturated fat, trans fat, & cholesterol. Limit whole milk & cream, ice cream, butter, egg yolks, processed meats (like sausage and hot dogs), and fatty meats. Choose healthy foods that are low in saturated fat, trans fat and cholesterol which include: Fruits and vegetables, fiber rich grain products (like whole grain pasta and brown rice), lean meat such as chicken, fish, nuts, seeds, and legumes. (3) Eat Better. Eat small portions. Shop at the grocery with a list and do not stray from it. Tips for a healthy diet include: Limit sodium intake to less than 1500mg daily, avoid prepackaged, processed, and fast foods, choose a diet rich in fruits, vegetables, and whole grain, high fiber foods, and limit saturated & cholesterol in your diet. (4) Manage Blood Pressure. If you have high blood pressure, you should have a cuff at home so that you can check your blood pressure regularly. Be sure you have a good cuff. An arm one is generally better than a wrist one. Bring the cuff to a doctor's appointment to validate that the measurements that your cuff are taking are accurate. Take your blood pressure twice daily when you are sitting down and relaxing. Record the numbers in a log and bring this log with you to your doctors' appointments. (5) Lose Weight if your BMI is above 25. A healthy BMI is between 19-25. To calculate Your BMI, you may use a Standard BMI Calculator on the NIH BMI website: <www.nhlbi.nih.gov/guidelines/obesity/BMI/bmicalc.htm>. Weigh oneself daily. If you are overweight, set a goal to lose weight. A pound a week loss if needed is a good target. (6) Reduce Blood Sugar. Limit foods and liquids with "added sugars." (Added sugars include sucrose, fructose, glucose, maltose, dextrose, high fructose corn syrup, corn syrup, concentrated fruit juice and honey). (7) Stop Smoking. If you smoke, quitting smoking is one of the best things that you can do for your health. Smoking increases your risk of heart attack, stroke, and peripheral vascular disease, which is a build-up of plaque in your arteries. Please discard all the cigarettes and lighters in your house. Have a plan for what you will do when you have the urge to smoke. Direct and second- hand smoke shortens your life as well as the lives of your family, friends and others around you. For your health and the health of those around you, please consider quitting! Proper Bending Body Mechanics: Maintain a wide stance with one foot slightly in front of the other. Keep your back straight. Bend utilizing the strength in your hips and knees. Do not bend at the waist. Maintain the lifted object at your waist-level close to your body. Avoid lifting weight that causes immediately pain or pain anywhere in the body afterwards. Smoking/Nicotine If there was ever one thing that you could do to increase your overall health, decrease your risk of cardiovascular problems by about 39% the second you make the choice, it is to STOP SMOKING. Your body's most instant gratification is the second you stop smoking. We have all heard the studies, read the articles but it is true, smoking is extremely bad for your overall health, and moreover it is detrimental to your bone health. Nicotine, IN ANY FORM, kills bone cells, prevents your body from healing fractures, and significantly prolongs healing after surgery. In spine surgery specifically, it increases your risk of not healing your bones to create a fusion and increases your risk of having a revision surgery due to this up to 60%. I know it is hard. I know it feels impossible. But there are ways. Take control of your life. We are here to help you through it. And when you are ready, ask us and we can direct you to help if you desire. Use the START Plan to Quit Smoking (please visit the [email or web address] website listed below for more information): S = Set a quit date. Choose a date within the next 2 weeks, so you have enough time to prepare without losing your motivation to quit. If you mainly smoke at work, quit on the weekend, so you have a few days to adjust to the change. T = Tell family, friends, and co-workers that you plan to quit. Let your friends and family in on your plan to quit smoking and tell them you need their support and encouragement to stop. Look for a quit luis who wants to stop smoking as well. You can help each other get through the rough times. A = Anticipate and plan for the challenges you'll face while quitting. Most people who begin smoking again do so within the first 3 months. You can help yourself make it through by preparing ahead for common challenges, such as nicotine withdrawal and cigarette cravings. R = Remove cigarettes and other tobacco products from your home, car, and work. Throw away all your cigarettes (no emergency pack!), lighters, ashtrays, and matches. Wash your clothes and freshen up anything that smells like smoke. Shampoo your car, clean your drapes and carpet, and steam your furniture. T = Talk to your doctor about getting help to quit. Your doctor can prescribe medication to help with withdrawal and suggest other alternatives. If you can't see a doctor, you can get many products over the counter at your local pharmacy or grocery store, including the nicotine patch, nicotine lozenges, and nicotine gum. Resources for Quitting Smoking: <https://www.[place].gov/documents/[facility]/Quit_Tobacco_Resources_for_patients_313 480_7.pdf> Supplementation: Take recommended dosages of Vitamin D and Calcium to help fortify your bones and help them to heal. See your health maintenance packet for dosages and recommended levels. DVT/VTE prophylaxis: You will be given compression stockings from the hospital. Wear these daily for the first two weeks after surgery. You may take them off at night. You may be prescribed a medication to help thin your blood. Take this as directed. If you are not prescribed this medication, early and frequent ambulation has been shown to be the best prophylaxis to deep vein thrombosis and sequelae related to this event. Assessment: 1. C4 through C6 spondylosis with stenosis 2. C4 through C6 herniated nucleus pulposus 3. Left upper extremity weakness with paresthesias and radiculopathy 4. Severe neck pain Procedures: 1. C4 through C6 total disc replacement transition to ACDF Patient Condition at Discharge: Good Plan - Discharge Summary Discharge Rx Participant: Yes New Discharge Prescriptions: New cefaDROXiL [Duricef] 500 mg PO Q12HR 5 Days #10 cap Cyclobenzaprine [Flexeril] 5 mg PO TID #21 tablet Sennosides/Docusate Sodium [Senna Plus 8.6-50 mg Softgel] 1 each PO DAILY #20 capsule Pregabalin [Lyrica] 75 mg PO BID #28 cap HYDROcodone/APAP 10-325MG [Lockney 10-325] 1 tab PO Q6HR PRN #28 tab PRN Reason: Pain No Action Montelukast [Singulair] 10 mg PO HS Ibuprofen [Motrin] 400 mg PO Q6HR PRN PRN Reason: Pain tiZANidine [Zanaflex] 4 mg PO Q8HR PRN PRN Reason: Spasms HYDROcodone/APAP 5-325MG [Lockney 5-325] 1 tab PO Q6HR PRN PRN Reason: Pain Atorvastatin [Lipitor] 40 mg PO HS Linaclotide [Linzess] 290 mcg PO DAILY DULoxetine HCL [Cymbalta] 60 mg PO HS Pregabalin [Lyrica] 75 mg PO BID Omeprazole [PriLOSEC] 20 mg PO AC-BID Levothyroxine Sodium [Synthroid] 125 mcg PO DAILY Discharge Medication List Montelukast [Singulair] 10 mg PO HS 07/16/19 [History] Atorvastatin [Lipitor] 40 mg PO HS 07/02/23 [History] DULoxetine HCL [Cymbalta] 60 mg PO HS 07/02/23 [History] HYDROcodone/APAP 5-325MG [Lockney 5-325] 1 tab PO Q6HR PRN 07/02/23 [History] Ibuprofen [Motrin] 400 mg PO Q6HR PRN 07/02/23 [History] Levothyroxine Sodium [Synthroid] 125 mcg PO DAILY 07/02/23 [History] Linaclotide [Linzess] 290 mcg PO DAILY 07/02/23 [History] Omeprazole [PriLOSEC] 20 mg PO AC-BID 07/02/23 [History] Pregabalin [Lyrica] 75 mg PO BID 07/02/23 [History] tiZANidine [Zanaflex] 4 mg PO Q8HR PRN 07/02/23 [History] Cyclobenzaprine [Flexeril] 5 mg PO TID #21 tablet 07/13/23 [Rx] HYDROcodone/APAP 10-325MG [Lockney 10-325] 1 tab PO Q6HR PRN #28 tab 07/13/23 [Rx] Pregabalin [Lyrica] 75 mg PO BID #28 cap 07/13/23 [Rx] Sennosides/Docusate Sodium [Senna Plus 8.6-50 mg Softgel] 1 each PO DAILY #20 capsule 07/13/23 [Rx] cefaDROXiL [Duricef] 500 mg PO Q12HR 5 Days #10 cap 07/13/23 [Rx] Follow up Appointment(s)/Referral(s): Julio Escamilla DO [Doctor of Osteopathic Medicine] - 2 Weeks Activity/Diet/Wound Care/Special Instructions: Spine Discharge and Recovery Instructions Date of Surgery: 07/12/2023 Diagnosis: 1. C4 through C6 spondylosis with stenosis 2. C4 through C6 herniated nucleus pulposus 3. Left upper extremity weakness with paresthesias and radiculopathy 4. Severe neck pain Procedure(s) Performed: 1. C4 through C6 total disc replacement transition to ACDF Medications: See medication list All medication refills should be obtained through your primary care doctor or your clinic spine surgeon. Please discuss prescription refills at your follow up appointment. Do not call the hospital for medication refills. Dressing: Leave your dressing in place for a total of 5 days post operatively. Then you may remove your dressing and leave open to air. Keep the area clean and if not able to keep area clean, then cover with sterile gauze and tape. Showering: You may shower 3 days after your procedure allowing soap and water to run over incision. Do not scrub. Do not soak. Blot dry. Follow up: Please confirm a follow up appointment with your surgeon 3 weeks post operatively. Please make an appointment to follow up with your PCP in 1-2 weeks after surgery for evaluation 3 phase, 3-week plan POST OP WEEKS 1-3 1. Lifting/carrying/pushing/pulling limited to less than 5 pounds. 2. Do not sit for longer than 15 minutes at one time. Get up and walk around. Prolonged sitting is NOT advised. If you lay down, see if you can tolerate laying down on you front (belly side) 3. Walk for periods of 15 minutes = 1 mile but no longer; do it multiple times times each day. 4. Ice your low back after activity. POST OP WEEKS 3-6 1. Lifting limited to less than 20 pounds. 2. Do not sit for longer than 30 minutes at a time. Frequently change positions. Use a sit-to stand workstation or take frequent breaks from sitting if you have returned to work. 3. Walk for 30 minutes each day. If possible, do these three or more times a day POST OP WEEKS 6+ At your 6-week appointment we will give you a physical therapy referral to focus on a core stabilization and strengthening program. You should also work on leg & buttock strengthening, hamstring & quadriceps stretching, and continue a low impact aerobic activity program such as swimming, walking, or riding a stationary bicycle. During the initial 6 weeks after your surgery, you are at the highest risk of re-injuring your spine. You should generally avoid BLTs (bending, lifting and twisting combination motions) and follow the above guidelines to reduce the chance of reinjury. You can anticipate post op appointments in our office at approximately 3 weeks and 6 weeks after your surgery. INCISION CARE: If your incision is not draining you do NOT need to cover it with a dressing. Keep your incision clean, dry and intact. In most cases, we apply skin glue, tianna or sutures to the incision at the time of surgery. This will be like a crust or have the appearance of a scab and will fall off in time on its own. The stitches or tianna need to be removed at 3 weeks post op appointment. You may begin to shower 3 days after surgery (this allows the glue to contreras well). However, please avoid scrubbing the incision site or peeling off any of the skin glue. This will ensure optimal healing of your incision. Also, during this time avoid soaking the incision area in water - this includes swimming pools, hot tubs or baths. No ointments, lotions or oils on the incision until your surgeon allows. Leave tianna, sutures or glue in place. Neurological dysfunction that comes on suddenly can also be a sign of a stroke. Below some common symptoms of a stroke are listed: B - balance difficulty such as sudden onset walking or leaning to one side - NEW E - eye problem such as sudden double vision or trouble seeing on one side - NEW F - Facial weakness or numbness on one side - NEW A - Arm or leg weakness or numbness on one side - NEW S - Slurred speech or difficulty with word finding - NEW T - Time is BRAIN! Call 911 as soon as you recognize these symptoms Diet: Consume a regular diet rich in vegetables and lean protein such as chicken or fish. You should consume in a ratio of approximately 20% fats|40% carbohydrates|40%protein. Vegetables, sweet potatoes, brown rice or quinoa are examples of good carbohydrates. Chips, white bread, cookies and sweets/sugar are examples of bad carbohydrates. Limit your bad carbs, go wild with good carbs. "Life's Simple 7" Guidelines as per [place] [employer] These will help you reclaim your life after surgery and crop farm helper in your recovery, keeping in mind your restrictions. (1) Get Active. Physical activity can help people lose weight, control high blood pressure and cholesterol, feel emotionally better, and sleep better. (2) Control Cholesterol. Avoid a diet high in saturated fat, trans fat, & cholesterol. Limit whole milk & cream, ice cream, butter, egg yolks, processed meats (like sausage and hot dogs), and fatty meats. Choose healthy foods that are low in saturated fat, trans fat and cholesterol which include: Fruits and vegetables, fiber rich grain products (like whole grain pasta and brown rice), lean meat such as chicken, fish, nuts, seeds, and legumes. (3) Eat Better. Eat small portions. Shop at the grocery with a list and do not stray from it. Tips for a healthy diet include: Limit sodium intake to less than 1500mg daily, avoid prepackaged, processed, and fast foods, choose a diet rich in fruits, vegetables, and whole grain, high fiber foods, and limit saturated & cholesterol in your diet. (4) Manage Blood Pressure. If you have high blood pressure, you should have a cuff at home so that you can check your blood pressure regularly. Be sure you have a good cuff. An arm one is generally better than a wrist one. Bring the cuff to a doctor's appointment to validate that the measurements that your cuff are taking are accurate. Take your blood pressure twice daily when you are sitting down and relaxing. Record the numbers in a log and bring this log with you to your doctors' appointments. (5) Lose Weight if your BMI is above 25. A healthy BMI is between 19-25. To calculate Your BMI, you may use a Standard BMI Calculator on the NIH BMI website: <www.nhlbi.nih.gov/guidelines/obesity/BMI/bmicalc.htm>. Weigh oneself daily. If you are overweight, set a goal to lose weight. A pound a week loss if needed is a good target. (6) Reduce Blood Sugar. Limit foods and liquids with "added sugars." (Added sugars include sucrose, fructose, glucose, maltose, dextrose, high fructose corn syrup, corn syrup, concentrated fruit juice and honey). (7) Stop Smoking. If you smoke, quitting smoking is one of the best things that you can do for your health. Smoking increases your risk of heart attack, stroke, and peripheral vascular disease, which is a build-up of plaque in your arteries. Please discard all the cigarettes and lighters in your house. Have a plan for what you will do when you have the urge to smoke. Direct and second- hand smoke shortens your life as well as the lives of your family, friends and others around you. For your health and the health of those around you, please consider quitting! Proper Bending Body Mechanics: Maintain a wide stance with one foot slightly in front of the other. Keep your back straight. Bend utilizing the strength in your hips and knees. Do not bend at the waist. Maintain the lifted object at your waist-level close to your body. Avoid lifting weight that causes immediately pain or pain anywhere in the body afterwards. Smoking/Nicotine If there was ever one thing that you could do to increase your overall health, decrease your risk of cardiovascular problems by about 39% the second you make the choice, it is to STOP SMOKING. Your body's most instant gratification is the second you stop smoking. We have all heard the studies, read the articles but it is true, smoking is extremely bad for your overall health, and moreover it is detrimental to your bone health. Nicotine, IN ANY FORM, kills bone cells, prevents your body from healing fractures, and significantly prolongs healing after surgery. In spine surgery specifically, it increases your risk of not healing your bones to create a fusion and increases your risk of having a revision surgery due to this up to 60%. I know it is hard. I know it feels impossible. But there are ways. Take control of your life. We are here to help you through it. And when you are ready, ask us and we can direct you to help if you desire. Use the START Plan to Quit Smoking (please visit the [email or web address] website listed below for more information): S = Set a quit date. Choose a date within the next 2 weeks, so you have enough time to prepare without losing your motivation to quit. If you mainly smoke at work, quit on the weekend, so you have a few days to adjust to the change. T = Tell family, friends, and co-workers that you plan to quit. Let your friends and family in on your plan to quit smoking and tell them you need their support and encouragement to stop. Look for a quit luis who wants to stop smoking as well. You can help each other get through the rough times. A = Anticipate and plan for the challenges you'll face while quitting. Most people who begin smoking again do so within the first 3 months. You can help yourself make it through by preparing ahead for common challenges, such as nicotine withdrawal and cigarette cravings. R = Remove cigarettes and other tobacco products from your home, car, and work. Throw away all your cigarettes (no emergency pack!), lighters, ashtrays, and matches. Wash your clothes and freshen up anything that smells like smoke. Shampoo your car, clean your drapes and carpet, and steam your furniture. T = Talk to your doctor about getting help to quit. Your doctor can prescribe medication to help with withdrawal and suggest other alternatives. If you can't see a doctor, you can get many products over the counter at your local pharmacy or grocery store, including the nicotine patch, nicotine lozenges, and nicotine gum. Resources for Quitting Smoking: <https://www.[place].gov/documents/[facility]/Quit_Tobacco_Resources_for_patient s_313480_7.pdf> Supplementation: Take recommended dosages of Vitamin D and Calcium to help fortify your bones and help them to heal. See your health maintenance packet for dosages and recom mended levels. DVT/VTE prophylaxis: You will be given compression stockings from the hospital. Wear these daily for the first two weeks after surgery. You may take them off at night. You may be prescribed a medication to help thin your blood. Take this as directed. If you are not prescribed this medication, early and frequent ambulation has been shown to be the best prophylaxis to deep vein thrombosis and sequelae related to this event. Discharge Disposition: HOME SELF-CARE
[2023-07-13 11:23] LABS: Blood Urea Nitrogen 6.4 mg/dL (9.0-27.0); Calcium 8.3 mg/dL (8.7-10.3); Carbon Dioxide 22.5 mmol/L (21.6-31.8); Chloride 102 mmol/L (96-109); Glucose 102 mg/dL (70-110); Potassium 4.2 mmol/L (3.5-5.5); Sodium 135 mmol/L (135-145)
[2023-07-13] MEDS: HYDROmorphone 0.5 MG/0.5 ML SYRINGE IVP PRN ×3 (11:32→20:35)
[2023-07-13] MEDS: Linaclotide [Linzess] 290 MCG Capsule PO SCH (11:45)
--- NOTE | 2023-07-13 12:45 | P.PN ---
Subjective Progress Note Date: 07/13/23 Subjective: Seen and examined at bedside. No acute events overnight Pertinent positives and negatives as discussed above, a complete review of systems was performed and all other systems are negative. Vitals Signs Reviewed. General: nontoxic, no distress, appears at stated age Derm: warm, dry Head: atraumatic, normocephalic, symmetric, neck in c-collar. Eyes: EOMI, no lid lag, anicteric sclera Mouth: no lip lesion, mucus membranes moist Cardiovascular: S1S2 reg, no murmur Lungs: CTA bilateral, no rhonchi, no rales , no accessory muscle use Abdominal: soft, nontender to palpation, no guarding, no appreciable organomegaly Ext: no gross muscle atrophy, no edema, no contractures Neuro: CN II-XI grossly intact, no focal neuro deficits Psych: Alert, oriented, appropriate affect Data Reviewed Today: Pertinent Labs: WBC 12.5, hemoglobin 13.1, creatinine 0.5 Imaging: Cervical CT report reviewed, shows uncomplicated postoperative changes EKG independently interpreted, shows sinus tachycardia Assessment and Plan: Leukocytosis, reactive, anticipated outcome of surgery Sinus tachycardia Dyslipidemia Hypothyroidism Asthma/COPD -Sinus tachycardia likely in the setting of pain -Home medications reviewed and resumed at the time of discharge Patient is medically optimized for discharge home. Thank you for allowing us to participate in the care of this pleasant patient. Do not hesitate to contact us with questions. Someone can be reached from the [facility] [place] hospitalist group all hours of the day at [phone] or via [employer]. Objective - Vital Signs Vital signs: Vital Signs Temp 98.4 F 07/13/23 07:45 Pulse 108 H 07/13/23 08:00 Resp 16 07/13/23 07:45 BP 124/78 07/13/23 07:45 Pulse Ox 94 L 07/13/23 07:45 FiO2 Intake & Output 07/12/23 07/13/23 07/13/23 18:59 06:59 18:59 Intake Total 1999 Output Total 25 Balance 1974 Weight 88.4 kg 88.4 kg Intake: IV 1999 Output: Estimated Blood Loss 25 Other: # Voids 1 - Labs CBC & Chem 7: 07/13/23 06:47 07/13/23 06:47 Labs: Abnormal Lab Results - Last 24 Hours (Table) 07/13/23 07/13/23 Range/Units 06:47 06:47 WBC 12.50 H (4.50-10.00) X 10*3/uL Neutrophils # 10.31 H (1.80-7.70) X 10*3/uL Eosinophils # 0.01 L (0.04-0.35) X 10*3/uL BUN 6.4 L (9.0-27.0) mg/dL Creatinine 0.5 L (0.6-1.5) mg/dL Calcium 8.3 L (8.7-10.3) mg/dL
[2023-07-13] MEDS: oxyCODONE-APAP 5-325MG 1 EACH TAB PO PRN ×2 (13:26→18:46)
--- NOTE | 2023-07-13 14:35 | P.PN ---
Subjective Progress Note Date: 07/13/23 Principal diagnosis: 1. C4 through C6 spondylosis with stenosis 2. C4 through C6 herniated nucleus pulposus 3. Left upper extremity weakness with paresthesias and radiculopathy 4. Severe neck pain Patient was seen at bedside this morning lying semirecumbent position. Patient said she had just finished working with therapy. Patient mentions she did get a little bit dizzy when she got up with therapy. Patient also mentions some nausea as well. Patient says she has not had much is inserted. Patient says she has urinated sometimes surgery without issue. Patient says she has not had bowel movement yet, but, patient says she is passing gas. Patient says she does have some difficulty swallowing since surgery. Patient mentions most the pain is localized to front of the neck. Patient denies any other issues at this time. Patient denies chest pain, fever, shortness breath, vomiting, change in vision, loss of bowel/bladder control. Objective - Vital Signs Vital signs: Vital Signs Temp 98.4 F 07/13/23 07:45 Pulse 108 H 07/13/23 08:00 Resp 16 07/13/23 07:45 BP 124/78 07/13/23 07:45 Pulse Ox 94 L 07/13/23 07:45 FiO2 Intake & Output 07/12/23 07/13/23 07/13/23 18:59 06:59 18:59 Intake Total 1999 Output Total 25 Balance 1974 Weight 88.4 kg 88.4 kg Intake: IV 1999 Output: Estimated Blood Loss 25 Other: # Voids 1 - Exam Inspection: Incision appears be clean, dry, intact. Dressing is in place over anterior cervical spine. Hard cervical collar in place. Sensation: Equal, symmetric, by intact at the upper and lower extremities Palpation: Moderate tenderness to palpation near incision on anterior cervical spine.. Nontender to palpation throughout rest of exam. Range of motion: Limited range of motion bilateral upper extremities and shoulde r for elevation, abduction, external/internal rotation secondary to referred pain to neck and weakness. Full range of motion throughout bilateral upper extremity smell flexion/extension and wrist flexion/extension. Motor: 3/5 in all major motor groups in left upper extremity. 4/5 in all major motor groups and right upper extremity. 5/5 in all major motor groups in bilateral lower extremities Neurovascular: Radial pulses intact, 2+ bilaterally. Cap refill under 3 seconds in digits the upper extremities. Special tests: Negative Homans bilaterally. Negative clonus bilaterally. - Labs CBC & Chem 7: 07/13/23 06:47 07/13/23 06:47 Assessment and Plan Assessment: 1. C4 through C6 spondylosis with stenosis; C4 through C6 herniated nucleus pulposus; Left upper extremity weakness with paresthesias and radiculopathy; Severe neck pain Postoperative day 1 status post- C4 through C6 total disc replacement transition to ACDF Plan: 1. C4 through C6 spondylosis with stenosis; C4 through C6 herniated nucleus pulposus; Left upper extremity weakness with paresthesias and radiculopathy; Severe neck pain - surgery performed yesterday, , 07/12/2023 C4 through C6 total disc replacement transition to ACDF. Patient stable at bedside this morning. Dressing and hard cervical collar in place. Pain medication as needed. Plan for discharge home today 2. Appreciate medical management 3. Pain management - Lyrica; Percocet; Flexeril 4. DVT prophylaxis - mechanical 5. GI prophylaxis - senna 6. PT/OT - weightbearing as tolerated and hard cervical collar at all times. Okay to remove to shower 7. Encourage incentive spirometer use 8. Discharge planning - discharge home today Time with Patient: Less than 30
[2023-07-13] MEDS ORDERED: DEXAMETHASONE SOD PHOSPHATE 4 MG/ML 1 ML VIAL IVP STA (17:55)
[2023-07-13] MEDS: CYCLOBENZAPRINE 5 MG TAB PO PRN (18:46)
[2023-07-13] MEDS ORDERED: MONTELUKAST 10 MG TAB PO SCH (21:00)
[2023-07-13] MEDS ORDERED: DULoxetine HCL 60 MG CAPSULE.DR PO SCH (21:00)
[2023-07-13] MEDS ORDERED: ATORVASTATIN 40 MG TAB PO SCH (21:00)
[2023-07-14] MEDS: ACETAMINOPHEN TAB 325 MG TAB PO SCH ×2 (00:23→05:52)
[2023-07-14 02:09] VITALS: PULSE 102; TEMP 97.8
[2023-07-14] MEDS: oxyCODONE-APAP 5-325MG 1 EACH TAB PO PRN ×2 (04:41→11:52)
[2023-07-14] MEDS: SODIUM CHLORIDE 0.9% 1,000 ML IV SCH (04:41)
[2023-07-14] MEDS: PANTOPRAZOLE 40 MG TABLET PO SCH (05:52)
[2023-07-14] MEDS: LEVOTHYROXINE 125 MCG TAB PO SCH (05:52)
[2023-07-14] MEDS: LACTATED RINGERS 1,000 ML IV SCH (06:13)
[2023-07-14] MEDS: Linaclotide [Linzess] 290 MCG Capsule PO SCH (08:24)
[2023-07-14] MEDS: PREGABALIN 75 MG CAP PO SCH (08:25)
[2023-07-14] MEDS: CYCLOBENZAPRINE 5 MG TAB PO PRN (08:30)
--- NOTE | 2023-07-14 09:41 | P.PN ---
Subjective Progress Note Date: 07/14/23 Principal diagnosis: 1. C4 through C6 spondylosis with stenosis 2. C4 through C6 herniated nucleus pulposus 3. Left upper extremity weakness with paresthesias and radiculopathy 4. Severe neck pain Patient was seen at bedside this morning lying semirecumbent position with hard cervical collar in place. Dressing is in place over anterior cervical spine. Patient says she is feeling much better today than she was yesterday. Patient says she has been able to eat a little bit more today. Patient says she is having some difficulty swallowing however it is better than it was yesterday. Patient denies any other issues at this time. Patient denies chest pain, fever, shortness breath, nausea, vomiting, change in vision, loss of bowel/bladder co ntrol. Objective - Vital Signs Vital signs: Vital Signs Temp 97.8 F 07/14/23 01:52 Pulse 102 H 07/14/23 01:52 Resp 18 07/13/23 19:29 BP 145/84 07/14/23 01:52 Pulse Ox 93 L 07/14/23 01:52 FiO2 Intake & Output 07/13/23 07/14/23 07/14/23 18:59 06:59 18:59 Other: # Voids 3 2 - Exam Inspection: Incision appears be clean, dry, intact. Dressing is in place over anterior cervical spine. Hard cervical collar in place. Sensation: Equal, symmetric, by intact at the upper and lower extremities Palpation: Moderate tenderness to palpation near incision on anterior cervical spine.. Nontender to palpation throughout rest of exam. Range of motion: Limited range of motion bilateral upper extremities and shoulder for elevation, abduction, external/internal rotation secondary to referred pain to neck and weakness. Full range of motion throughout bilateral upper extremity smell flexion/extension and wrist flexion/extension. Motor: 3/5 in all major motor groups in left upper extremity. 4/5 in all major motor groups and right upper extremity. 5/5 in all major motor groups in bilateral lower extremities Neurovascular: Radial pulses intact, 2+ bilaterally. Cap refill under 3 seconds in digits the upper extremities. Special tests: Negative Homans bilaterally. Negative clonus bilaterally. - Labs CBC & Chem 7: 07/13/23 06:47 07/13/23 06:47 Labs: Abnormal Lab Results - Last 24 Hours (Table) 07/13/23 07/13/23 Range/Units 06:47 06:47 WBC 12.50 H (4.50-10.00) X 10*3/uL Neutrophils # 10.31 H (1.80-7.70) X 10*3/uL Eosinophils # 0.01 L (0.04-0.35) X 10*3/uL BUN 6.4 L (9.0-27.0) mg/dL Creatinine 0.5 L (0.6-1.5) mg/dL Calcium 8.3 L (8.7-10.3) mg/dL Assessment and Plan Assessment: 1. C4 through C6 spondylosis with stenosis; C4 through C6 herniated nucleus pulposus; Left upper extremity weakness with paresthesias and radiculopathy; Severe neck pain Postoperative day 2 status post- C4 through C6 total disc replacement transition to ACDF Plan: 1. C4 through C6 spondylosis with stenosis; C4 through C6 herniated nucleus pulposus; Left upper extremity weakness with paresthesias and radiculopathy; Severe neck pain - surgery performed , 07/12/2023 C4 through C6 total disc replacement transition to ACDF. Patient stable at bedside this morning. Dressing and hard cervical collar in place. Pain medication as needed. Plan for discharge home today 2. Appreciate medical management 3. Pain management - Lyrica; Percocet; Flexeril 4. DVT prophylaxis - mechanical 5. GI prophylaxis - senna 6. PT/OT - weightbearing as tolerated and hard cervical collar at all times. Okay to remove to shower 7. Encourage incentive spirometer use 8. Discharge planning - discharge home today Time with Patient: Less than 30
[2023-07-14 09:47] VITALS: BP 137/87; RESP 17
--- NOTE | 2023-07-14 13:09 | P.PN ---
Subjective Progress Note Date: 07/14/23 Patient is a 48-year-old female with history of constipation, asthma/COPD, and dyslipidemia who presented for C4 to 6 total disc replacement transitioned ACDF due to radiculopathy and severe neck pain. Patient seen and examined at bedside. She is feeling much better today. She is able to swallow easier her pain is better controlled. She does report a significant history of constipation including needing to use linzess which she is currently needs refilled. Vital signs reviewed General: nontoxic, no distress, appears at stated age Cardiovascular: S1S2 reg, no murmur, positive posterior tibial pulse bilateral, Lungs: CTA bilateral, no rhonchi, no rales , no accessory muscle use Abdominal: soft, nontender to palpation, no guarding, no appreciable organomegaly Psych: Alert, oriented, appropriate affect Assessment/Plan: 48-year-old female status post C4 to C6 ACDF Chronic constipation -Her prescription for Linzess 290 mg oral daily was refilled -She was discharged with senna 1 tablet to take daily. I discussed with her that she should take 1 tablet each day when she is requiring oxycodone acetaminophen. Her plan for severe constipation despite senna will be to take MiraLAX 17 g once today as it has been at least 3 days since her last bowel movement, and then continue Satya's daily if no bowel movement for 48 hours. Asthma/COPD without exacerbation - Singulair 10 mg at night Dyslipidemia - Lipitor 40 mg at night Thyroidism -Levothyroxine 125 g daily Discharge medication reconciliation addressed. Instructions are constipation given both verbally and added to discharge tab Medically optimized for discharge at the discretion of orthopedic surgery Thank you for allowing us to participate in the care of this pleasant patient. Do not hesitate to contact us with questions. Someone can be reached from the [facility] hospitalist group all hours of the day at [phone] or via [email or web address]. This dictation was prepared using [employer] voice recognition software. Though every attempt is made to correct errors during dictation some may still exist. Objective - Vital Signs Vital signs: Vital Signs Temp 97.8 F 07/14/23 07:01 Pulse 102 H 07/14/23 07:01 Resp 17 07/14/23 07:01 BP 137/87 07/14/23 07:01 Pulse Ox 96 07/14/23 07:01 FiO2 Intake & Output 07/13/23 07/14/23 07/14/23 18:59 06:59 18:59 Other: # Voids 3 2 - Labs CBC & Chem 7: 07/13/23 06:47 07/13/23 06:47 Labs: Abnormal Lab Results - Last 24 Hours (Table) 07/13/23 07/13/23 Range/Units 06:47 06:47 WBC 12.50 H (4.50-10.00) X 10*3/uL Neutrophils # 10.31 H (1.80-7.70) X 10*3/uL Eosinophils # 0.01 L (0.04-0.35) X 10*3/uL BUN 6.4 L (9.0-27.0) mg/dL Creatinine 0.5 L (0.6-1.5) mg/dL Calcium 8.3 L (8.7-10.3) mg/dL
== END 2023-07-14 12:20 | disposition home or self-care (01) ==
LOC: OR 12:45 → 4SSUR 18:16 → OR 07-14 12:20
PROVIDERS: ATTEND Orthopaedic Surgery
DX: M50.122 Cervical disc disorder at C5-C6 level with radiculopathy (principal); M47.22 Other spondylosis with radiculopathy, cervical region; M47.892 Other spondylosis, cervical region; M48.02 Spinal stenosis, cervical region; M79.603 Pain in arm, unspecified; M54.9 Dorsalgia, unspecified; M25.511 Pain in right shoulder; M25.512 Pain in left shoulder; M79.645 Pain in left finger(s); M79.642 Pain in left hand; E03.9 Hypothyroidism, unspecified; Z79.891 Long term (current) use of opiate analgesic; Z79.1 Long term (current) use of non-steroidal anti-inflammatories (NSAID); Z79.52 Long term (current) use of systemic steroids; Z79.890 Hormone replacement therapy; Z79.899 Other long term (current) drug therapy
CPT/HCPCS: 22551; 22552; 22853; 93005; 97530; 97161; 80048; 85025; 72020; 72125; 20930; C1713; J2250; J1100; J0690 ×2; J2405; J1170 ×4

== ENCOUNTER → 2023-10-08 | Outpatient (CLI) | payer OTHER ==
--- NOTE | 2023-10-08 15:10 | XR ---
EXAMINATION TYPE: XR KUB DATE OF EXAM: 10/08/2023 COMPARISON: 03/16/2022 INDICATION: Right-sided renal stones history of bilateral renal stones TECHNIQUE: Single view abdomen FINDINGS: There is a normal colonic bowel gas pattern. No mass effect is evident. Psoas margins are normal. No organomegaly is present. No renal stones are identified. Previous left hemipelvis calcification is not evident. IMPRESSION: 1. Unremarkable Abdomen
== END | disposition home or self-care (01) ==
LOC: RADXRMAIN 14:48
PROVIDERS: ATTEND Urology
DX: N20.0 Calculus of kidney (principal)
CPT/HCPCS: 74018

== ENCOUNTER → 2023-11-27 | Outpatient (CLI) | payer OTHER ==
[2023-11-27 19:16] LABS: T4, Free (Free Thyroxine) 1.62 ng/dL (0.80-1.80)
== END | disposition home or self-care (01) ==
LOC: LABWHC1 09:21
PROVIDERS: ATTEND Internal Medicine Endocrinology, Diabetes & Metabolism
DX: E04.2 Nontoxic multinodular goiter (principal); E03.9 Hypothyroidism, unspecified; R13.10 Dysphagia, unspecified; R49.0 Dysphonia
CPT/HCPCS: 36415; 84439; 84443

== ENCOUNTER → 2023-11-27 | Outpatient (CLI) | payer OTHER ==
--- NOTE | 2023-11-27 09:29 | US ---
EXAMINATION TYPE: US abdomen complete DATE OF EXAM: 11/27/2023 COMPARISON: 04/26/2022 CLINICAL INDICATION: Female, 48 years old with history of R10.9 UNSPECIFIED ABDOMINAL PAIN; Patient s tates RUQ pain. Patient has hx of cholecystectomy in 2019. Hx of renal stones. TECHNIQUE: Multiple sonographic images of the abdomen are obtained. FINDINGS: EXAM MEASUREMENTS: Liver Length: 15.1 cm Gallbladder Wall: Surgically absent CBD: 0.6 cm Spleen: 9.9 cm Right Kidney: 10.8 x 3.9 x 4.9 cm Left Kidney: 11.7 x 5.2 x 4.8 cm PHYSICAL THERAPY DIRECTOR NOTES: Slightly limited due to overlying bowel gas Pancreas: Obscured by bowel gas Liver: Slightly echogenic. Posterior aspect obscured by gas Gallbladder: Surgically absent Evidence for sonographic Hernández's sign: No CBD: WNL post cholecystectomy Spleen: wnl Right Kidney: No hydronephrosis or masses seen as best visualized Left Kidney: There is a 0.5 x 0.2 cm echogenic foci seen within the mid/medial left kidney. Upper IVC: wnl Abd Aorta: wnl. Portions obscured by gas. IMPRESSION: Nephrolithiasis. No acute process.
== END | disposition home or self-care (01) ==
LOC: RADUSWWP 08:37
DX: N20.0 Calculus of kidney (principal)
CPT/HCPCS: 76700

== ENCOUNTER 2024-03-04 15:33 | Emergency (ER) | payer OTHER ==
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
[2024-03-04] MEDS: MORPHINE SULFATE 4 MG/ML SYRINGE IV STA (16:07)
--- NOTE | 2024-03-04 16:13 | XR ---
EXAMINATION TYPE: XR chest 2V DATE OF EXAM: 03/04/2024 COMPARISON: 12/03/2018 HISTORY: Chest pain TECHNIQUE: Frontal and lateral views of the chest are obtained. FINDINGS: There is no focal air space opacity. No evidence for pneumothorax. No pleural effusion. The cardiac silhouette size is within normal limits. The osseous structures are grossly intact. IMPRESSION: 1. No acute cardiopulmonary process.
[2024-03-04 16:25] LABS: ALT 29 U/L (4-34); AST 26 U/L (14-36); African American GFR (CKD) >90 (>60 ml/min/1.73 sqM); Albumin 4.3 g/dL (3.5-5.0); Alkaline Phosphatase 98 U/L (38-126); Anion Gap 9 mmol/L; Blood Urea Nitrogen 11 mg/dL (7-17); Calcium 9.9 mg/dL (8.4-10.2); Carbon Dioxide 21 mmol/L (22-30); Chloride 106 mmol/L (98-107); Glucose 85 mg/dL (74-99); Lipase 178 U/L (23-300); Magnesium 1.9 mg/dL (1.6-2.3); Non-African American GFR(CKD) >90 (>60 ml/min/1.73 sqM); Potassium 4.2 mmol/L (3.5-5.1); Sodium 136 mmol/L (137-145); Total Bilirubin 0.6 mg/dL (0.2-1.3); Total Protein 7.1 g/dL (6.3-8.2)
[2024-03-04 16:34] LABS: INR 0.9 (<1.2); Partial Thromboplastin Time 26.9 sec (22.0-30.0); Prothrombin Time 9.9 sec (10.0-12.5)
[2024-03-04 16:57] LABS: Basophils % (A) 0 %; Eosinophils # (A) 0.1 k/uL (0-0.7); Eosinophils % (A) 1 %; HCT 44.1 % (34.0-46.0); HGB 14.3 gm/dL (11.4-16.0); Lymphocytes # (A) 2.6 k/uL (1.0-4.8); Lymphocytes % (A) 40 %; MCH 29.5 pg (25.0-35.0); MCHC 32.4 g/dL (31.0-37.0); MCV 90.9 fL (80.0-100.0); Mean Platelet Volume 8.3; Monocytes # (A) 0.4 k/uL (0-1.0); Monocytes % (A) 6 %; Neutrophils # (A) 3.2 k/uL (1.3-7.7); Neutrophils % (A) 50 %; Platelet Count 220 k/uL (150-450); RBC 4.85 m/uL (3.80-5.40); RDW 12.7 % (11.5-15.5); WBC 6.4 k/uL (3.8-10.6)
[2024-03-04 18:15] VITALS: RESP 18; TEMP 98.4
[2024-03-04] MEDS: KETOROLAC 15 MG/ML 1 ML VIAL IVP STA (18:43)
[2024-03-04 21:01] VITALS: BP 115/76; PULSE 85
== END 2024-03-04 21:04 | disposition home or self-care (01) ==
LOC: EC 15:33
DX: R07.89 Other chest pain (principal); Z88.1 Allergy status to other antibiotic agents; Z88.2 Allergy status to sulfonamides; Z91.018 Allergy to other foods; Z88.8 Allergy status to other drugs, medicaments and biological substances; Z87.891 Personal history of nicotine dependence
CPT/HCPCS: 36415; 93005; 85379; 80053; 83690; 83735; 84484; 85025; 85610; 85730; 71046; 99285; 96374; 96375; J2270; J1885

== ENCOUNTER 2024-05-14 18:09 | Emergency (ER) | payer OTHER ==
[2024-05-14 18:14] VITALS: RESP 18; TEMP 97.6
[2024-05-14] MEDS: KETOROLAC 15 MG/ML 1 ML VIAL IVP STA (19:04)
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
[2024-05-14 19:28] LABS: Basophils % (A) 0 %; Eosinophils # (A) 0.1 k/uL (0-0.7); Eosinophils % (A) 1 %; HCT 39.1 % (34.0-46.0); HGB 13.6 gm/dL (11.4-16.0); Lymphocytes # (A) 2.4 k/uL (1.0-4.8); Lymphocytes % (A) 30 %; MCH 31.5 pg (25.0-35.0); MCHC 34.7 g/dL (31.0-37.0); Mean Platelet Volume 7.6; Monocytes # (A) 0.4 k/uL (0-1.0); Monocytes % (A) 5 %; Neutrophils # (A) 5.1 k/uL (1.3-7.7); Neutrophils % (A) 63 %; Platelet Count 248 k/uL (150-450); RDW 12.6 % (11.5-15.5)
[2024-05-14 19:42] LABS: ALT 23 U/L (4-34); AST 31 U/L (14-36); African American GFR (CKD) >90 (>60 ml/min/1.73 sqM); Albumin 3.7 g/dL (3.5-5.0); Alkaline Phosphatase 83 U/L (38-126); Anion Gap 4 mmol/L; Blood Urea Nitrogen 9 mg/dL (7-17); Calcium 8.8 mg/dL (8.4-10.2); Carbon Dioxide 22 mmol/L (22-30); Chloride 108 mmol/L (98-107); Glucose 85 mg/dL (74-99); INR 0.9 (<1.2); Magnesium 1.9 mg/dL (1.6-2.3); Non-African American GFR(CKD) >90 (>60 ml/min/1.73 sqM); Partial Thromboplastin Time 26.2 sec (22.0-30.0); Potassium 4.1 mmol/L (3.5-5.1); Prothrombin Time 9.9 sec (10.0-12.5); Sodium 134 mmol/L (137-145); Total Bilirubin 0.5 mg/dL (0.2-1.3); Total Protein 6.3 g/dL (6.3-8.2)
--- NOTE | 2024-05-14 20:09 | XR ---
EXAMINATION TYPE: XR chest 2V DATE OF EXAM: 05/14/2024 7:42 PM CLINICAL INDICATION:Female, 49 years old with history of Chest Pain; [facility] COMPARISON: None TECHNIQUE: XR chest 2V. Frontal and lateral views of the chest.. FINDINGS: Lines/Tubes/Devices: EKG leads overlie the chest. No indwelling lines are seen. Heart/mediastinum: Heart size is normal. Mediastinum appears normal. Pulmonary vascularity: Not increased, Lungs/Pleura: Mild haziness left lung base on frontal view likely combination of prominent pericardia l fat, overlying soft tissues, possibly minor atelectasis. There is no evidence of pleural effusion, focal consolidation, or pneumothorax. Musculoskeletal: No acute osseous abnormality demonstrated in the limits of the exam. Other findings: None. IMPRESSION: No acute cardiopulmonary abnormality.
[2024-05-14] MEDS: HYDROmorphone 0.5 MG/0.5 ML SYRINGE IVP STA (21:23)
--- NOTE | 2024-05-14 22:31 | CT ---
EXAMINATION TYPE: CT chest angio for PE CT DLP: 294.4 mGycm, Automated exposure control for dose reduction was used. DATE OF EXAM: 05/14/2024 8:34 PM COMPARISON: Same day chest x-ray CLINICAL INDICATION:Female, 49 years old with history of D-dimer; chest pain TECHNIQUE/CONTRAST: CTA scan of the thorax is performed with IV Contrast, patient injected with 100 ml mL of Isovue 370, MIP images are created and reviewed these are created on a separate workstation.. FINDINGS: There is adequate contrast bolus and timing. PULMONARY ARTERIES: There is no evidence for a filling defect within the pulmonary vasculature to sug gest acute pulmonary embolism. Pulmonary trunk is normal in size. Trunk measures 2.4 CM. AORTA: No significant atherosclerotic disease. No aneurysm or dissection. HEART: Normal heart size. No appreciable pericardial effusion. LOWER NECK: No significant findings. Unremarkable thyroid. MEDIASTINUM: No enlarged nodes by CT size criteria. SOFT TISSUES/AXILLA: Unremarkable soft tissues. No axillary adenopathy. LUNGS/ PLEURA: The lung parenchyma shows no acute abnormality. Minimal linear scarring or atelectasis in the lingula and left lower lobe. AIRWAY: Central airways are patent. MUSCULOSKELETAL: No acute osseous abnormality. Mild degenerative changes of the spine. UPPER ABDOMEN: No significant findings. IMPRESSION: 1. No evidence of pulmonary embolism. 2. No other acute chest process demonstrated.
[2024-05-15 00:08] VITALS: BP 126/82; PULSE 62
== END 2024-05-15 00:18 | disposition home or self-care (01) ==
LOC: EC 18:09
DX: R07.9 Chest pain, unspecified
CPT/HCPCS: 36415; 71046; 71275; 80053; 83735; 84484; 85025; 85379; 85610; 85730; 93005; 96374; 96375; 99285

== ENCOUNTER 2024-07-18 13:23 | Emergency (ER) | payer OTHER ==
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
[2024-07-18] MEDS: KETOROLAC 15 MG/ML 1 ML VIAL IVP STA (14:35)
[2024-07-18] MEDS: methylPREDNISolone SOD SUCCI 125 MG/2 ML VIAL IV STA (14:36)
[2024-07-18] MEDS: HYDROmorphone 1 MG/ML 1 ML SYRINGE IVP STA (14:36)
[2024-07-18] MEDS: HYDROmorphone 0.5 MG/0.5 ML SYRINGE IVP STA ×2 (14:40→15:30)
[2024-07-18 15:27] VITALS: BP 120/78; PULSE 69; RESP 18; TEMP 98.1
== END 2024-07-18 15:49 | disposition home or self-care (01) ==
LOC: EC 13:23
DX: M54.31 Sciatica, right side (principal); Z87.891 Personal history of nicotine dependence; Z88.2 Allergy status to sulfonamides; Z88.1 Allergy status to other antibiotic agents; Z91.018 Allergy to other foods
CPT/HCPCS: 99283; 96374; 96375 ×2; 96376; J1171 ×2; J1885; J2919

== ENCOUNTER → 2024-08-26 | Outpatient (CLI) | payer OTHER ==
[2024-08-26 11:41] VITALS: BP 125/89; PULSE 95; RESP 16
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
== END ==
LOC: PNWHC3 10:49
PROVIDERS: ATTEND Anesthesiology
DX: M47.26 Other spondylosis with radiculopathy, lumbar region (principal); Z88.1 Allergy status to other antibiotic agents; Z88.2 Allergy status to sulfonamides; Z91.018 Allergy to other foods; Z88.6 Allergy status to analgesic agent; Z87.891 Personal history of nicotine dependence
CPT/HCPCS: 99211

== ENCOUNTER 2024-10-09 11:44 | Day surgery (SDC) | payer OTHER ==
[2024-10-09 12:18] VITALS: TEMP 97.6
[2024-10-09] MEDS: LACTATED RINGERS 1,000 ML IV SCH (12:18)
[2024-10-09] MEDS: IV FLUID CONTINUATION 1,000 ML IV ONE ×2 (12:19→14:02)
[2024-10-09] MEDS: LIDOCAINE 1% (10MG/ML) FOR IV START INTRADERMA STA (12:19)
[2024-10-09 12:32] LABS: Glucose,Whole Blood 92 mg/dL (70-110)
[2024-10-09] MEDS ORDERED: MIDAZOLAM 2 MG/2 ML VIAL ONE (13:32)
[2024-10-09] MEDS ORDERED: ROPIVACAINE 5MG/ML 20ML VIAL ONE (13:32)
--- NOTE | 2024-10-09 14:01 | P.PCN ---
Description of Procedure: Preprocedure diagnosis. 1. Lumbar spondylosis with facet joint arthropathy without myelopathy. 2. Lumbar degenerative disc disease. Postprocedure diagnosis. As above. Procedure done. Bilateral diagnostic block with local anesthetics at L4, L5 medial branch to target the facet joint L5-S1 with fluoroscopic guidance (fluoroscopy images are available in the radiology department) . Anesthesia. Moderate sedation with intravenous Versed 2 mg and local infiltration with local anesthetics. In OR, continuous pulse ox, EKG, blood pressure and verbal communication was maintained. Time. Blood loss. Minimal. Indication. The patient has low back pain secondary to lumbar facet joint arthropathy. Discussed the procedure and alternative and complications which includes infection, bleeding, nerve damage, paralysis ,aggravation of pain. Patient understands and all questions were answered. Patient iunderstands that if any pain relief occurs it will last for a few hours to a few days maximum. Procedure description. After getting consent patient was taken in the OR in prone position. Back prepped with chlorhexidine and draped in sterile fashion. After injecting 5 mL of plain 1% lidocaine subcutaneously, a 22-gauge spinal needle was introduced under tunnel vision of the fluoroscope at the junction of the superior articular process with RIGHT ala of the sacrum. With slight oblique fluoroscope, after injecting 5 mL of plain 1% lidocaine subcutaneously, a 22-gauge spinal needle was introduced under tunnel vision of the fluoroscope at the junction of the superior articular process with RIGHT L5 transverse process, Negative CSF, negative blood, negative paresthesia. After needle position confirmation by AP and crosstable lateral view, after negative aspiration, half milliliters of solution were injected at each point. Total 1 mL of solution was injected on the right side which consists of 0.5% ropivacai ne. In exactly same way, LEFT sided injections were done at the following 2 points. Junction of the superior articular process with left ala of the sacrum, junction of the superior articular process with the left L5 transverse process using 0.5 mL of solution at each point. Total 1 mL of solution was injected on the left side which consists of 0.5% ropivacaine . Spinal needles were taken out and bandages were applied. Disposition. Patient tolerated the procedure well. No complication. Discharged home in stable condition IN FUTURE CONSIDER JA PATIENT HAS SUPERIMPOSED RADICULAR SYMPTOMS.
[2024-10-09 14:23] VITALS: BP 115/80; PULSE 74; RESP 16
--- NOTE | 2024-10-09 15:16 | FL ---
Fluoroscopy guided pain management statistics. HISTORY: Back pain. COMPARISON: None TECHNIQUE: 51.2 seconds of fluoroscopy and 4 spot films of the lumbar spine were obtained. FINDINGS: Spot films demonstrate placement of needles in the L4-5 and L5-S1 facet joints bilaterally. IMPRESSION: Fluoroscopic guidance of bilateral L4-5 and L5-S1 facet blocks. [facility], Workstation: [facility], 10/09/2024 3:14 PM
== END 2024-10-09 14:31 | disposition home or self-care (01) ==
LOC: ORPAIN 11:44
PROVIDERS: ATTEND Pain Medicine Interventional Pain Medicine
DX: M47.816 Spondylosis without myelopathy or radiculopathy, lumbar region (principal); M51.369 Other intervertebral disc degeneration, lumbar region without mention of lumbar back pain or lower extremity pain
CPT/HCPCS: 64493; J2250; J2795; 99152; 99153

== ENCOUNTER 2024-11-18 11:32 | Day surgery (SDC) | payer OTHER ==
[~2024-11-18 11:32] MED LIST changes: -ACETAMINOPHEN TAB 500 MG TAB PO PRN; -GABAPENTIN 300 MG CAP PO PRN; +LACTATED RINGERS 1,000 ML IV SCH; -LIDOCAINE 1% (10MG/ML) FOR IV START INTRADERMA PRN; -MIDAZOLAM 2 MG/2 ML VIAL IV PRN; -ONDANSETRON 4 MG/2 ML VIAL IVP ONE; -ONDANSETRON 4 MG/2 ML VIAL IVP PRN; -TRANEXAMIC 1,000 MG/100ML-NACL 1,000 MG in SALINE 1 100ML.BAG IVPB PRN
[2024-11-18] MEDS: LACTATED RINGERS 1,000 ML IV ONE (11:55)
[2024-11-18 12:05] VITALS: RESP 16; TEMP 97.1
[2024-11-18] MEDS ORDERED: MIDAZOLAM 2 MG/2 ML VIAL ONE (13:08)
[2024-11-18] MEDS ORDERED: ROPIVACAINE 5MG/ML 20ML VIAL ONE (13:08)
[2024-11-18] MEDS ORDERED: fentaNYL (PF) 50 MCG/ML 2 ML AMP ONE (13:08)
[2024-11-18] MEDS ORDERED: LIDOCAINE 1% INJ 10MG/ML (20 ML MDV) ONE (13:08)
[2024-11-18] MEDS: IV FLUID CONTINUATION 1,000 ML IV ONE (13:31)
--- NOTE | 2024-11-18 13:34 | P.PCN ---
Description of Procedure: Description of Procedure: Preprocedure diagnosis. 1. Lumbar spondylosis with facet joint arthropathy without myelopathy. 2. Lumbar degenerative disc disease. Postprocedure diagnosis. As above. Procedure done. Bilateral diagnostic block with local anesthetics at L4, L5 medial branch to target the facet joint L5-S1 with fluoroscopic guidance (fluoroscopy images are available in the radiology department) . Anesthesia. Moderate sedation with intravenous Versed 2 mg and local infiltration with local anesthetics. In OR, continuous pulse ox, EKG, blood pressure and verbal communication was maintained. Time. Blood loss. Minimal. Indication. The patient has low back pain secondary to lumbar facet joint arthropathy. Discussed the procedure and alternative and complications which includes infection, bleeding, nerve damage, paralysis ,aggravation of pain. Patient understands and all questions were answered. Patient iunderstands that if any pain relief occurs it will last for a few hours to a few days maximum. Procedure description. After getting consent patient was taken in the OR in prone position. Back prepped with chlorhexidine and draped in sterile fashion. After injecting 5 mL of plain 1% lidocaine subcutaneously, a 22-gauge spinal needle was introduced under tunnel vision of the fluoroscope at the junction of the superior articular process with RIGHT ala of the sacrum. With slight oblique fluoroscope, after injecting 5 mL of plain 1% lidocaine subcutaneously, a 22-gauge spinal needle was introduced under tunnel vision of the fluoroscope at the junction of the superior articular process with RIGHT L5 transverse process, Negative CSF, negative blood, negative paresthesia. After needle pos ition confirmation by AP and crosstable lateral view, after negative aspiration, half milliliters of solution were injected at each point. Total 1 mL of solution was injected on the right side which consists of 0.5% ropivacaine. In exactly same way, LEFT sided injections were done at the following 2 points. Junction of the superior articular process with left ala of the sacrum, junction of the superior articular process with the left L5 transverse process using 0.5 mL of solution at each point. Total 1 mL of solution was injected on the left side which consists of 0.5% ropivacaine . Spinal needles were taken out and bandages were applied. Disposition. Patient tolerated the procedure well. No complication. Discharged home in stable condition IN FUTURE CONSIDER JA PATIENT HAS SUPERIMPOSED RADICULAR SYMPTOMS.
--- NOTE | 2024-11-18 13:48 | FL ---
EXAMINATION TYPE: FL guided pain mgmt statistic DATE OF EXAM: 11/18/2024 1:32 PM COMPARISON: Pre Operative Images if available both CT/MRI or plain film CLINICAL INDICATION: Female, 49 years old with history of Anup Lumbar Facet; TECHNIQUE: FL guided pain mgmt statistic, multiple fluoroscopic images provided for procedure. DAP: 0.39532 mGym2 Gycm2 uGym2 cGycm2 or equivalent. FINDINGS: Fluoroscopic images during injection for pain management demonstrate multilevel degeneration changes throughout the spine. No evidence for fracture. No acute process identified. IMPRESSION: 1. No evidence for intraoperative complication. 2. Please see the operative/procedural note for further details. [facility], , 11/18/2024 1:46 PM
[2024-11-18 13:52] VITALS: BP 116/78; PULSE 78
== END 2024-11-18 14:01 | disposition home or self-care (01) ==
LOC: ORPAIN 11:32
PROVIDERS: ATTEND Pain Medicine Interventional Pain Medicine
DX: M47.816 Spondylosis without myelopathy or radiculopathy, lumbar region (principal); Z88.8 Allergy status to other drugs, medicaments and biological substances; Z88.2 Allergy status to sulfonamides; Z88.0 Allergy status to penicillin; Z88.1 Allergy status to other antibiotic agents; Z91.018 Allergy to other foods
CPT/HCPCS: 64493; J2250; J2003; J3010; J2795; 99152; 99153

== ENCOUNTER → 2024-12-04 | Outpatient (CLI) | payer OTHER ==
[2024-12-04 12:45] VITALS: BP 107/79; PULSE 88; RESP 16; TEMP 97.3
--- NOTE | 2024-12-04 14:26 | P.PAINPG ---
PQRS Measure Charge Sheet Comment: HISTORY OF PRESENT ILLNESS: A 49 yr old female presents today w severe and chronic LBP > 1 yr secondary to radiculopathy, spondylosis and facet arthropathy without myelopathy for evaluation s/p BL MBB L5-S1 #2. Pt states she experienced 95 % pain relief x 6-8 hr s/p procedure. Pt states pain level is provoked at 8 /10 in intensity, constant, localized in the lower lumbar spine, predominantly axial, sharp in character w occasional shooting pain towards the L & R of midline. Pain is provoked by walking for periods > 10 min. Pain is alleviated by PT x 3-4 wks which she is currently in, physician guided home exercises 4-5 times weekly since Mar 2024, heat, ice, medications, topical, repositioning and rest . Interventional procedures include BL MBB L5-S1 x2 Medications include [place], Flexeril, Toradol, Tyl, Ibu, BioFreeze, Icy-Hot & Wegovy REVIEW OF ORGAN SYSTEMS: CONSTITUTIONAL: No fevers or chills. No recent weight loss. NEUROLOGICAL: + numbness and tingling along the distal extremities. No seizure disorders or headaches. MUSCULOSKELETAL: + pain PSYCHIATRIC: Denies current depression or suicidal thoughts. Physical Examinations : Constitutional : Cooperative , not in acute distress . Neurologic : Cranial nerve II to XII intact. No focal neurological deficits. Psychiatric : alert & oriented x 3. Matching mood & appropriate affect. Judgment & insight intact. Musculoskeletal : Cervical Spine Motor strength in the deltoid and biceps: Normal right side. Normal Left side Motor strength biceps and the wrist extensors: Normal right side . Normal left side Motor strength in the triceps muscle: Normal right side. Normal left side Deep tendon reflexes: Normal at the biceps. Normal at Brachioradialis. Normal at triceps Vertebral body tenderness to deep palpation over Cervical facet loading test: positive bilaterally Spurling test: positive bilaterally Neck distraction test: positive bilaterally Calvin sign: positive bilaterally Lumbar spine Motor strength lower extremities ,thigh and legs 5/5 Right side , 5/5 Left side Deep tendon reflexes : Normal Knee Jerk. Normal Ankle Jerk Vertebral body tenderness over Enriquez Test positive Lumbar facet Loading Test: positive Right / positive Left L5-S1 Range of motion of the lumbar spine Flexion 30 degrees, extension 10 degrees Straight Leg Raise test: Left/ Right positive at degrees Alexander test: positive right / positive left. Severe tenderness over the Sacroiliac joint on the Right / Left sides Gaenslen test: positive bilaterally Seated flexion test: positive bilaterally. Sacral spine : Severe tenderness over the Sacroiliac joint: right side / left side Range of motion: Flexion of the lumbar spine <60 degrees Range of motion: Extension of the lumbar spine <20 degrees Gaenslen's Test positive Alexander test: positive right side / left side Thigh Thrust Test Sacral Thrust Test Imaging: MRI non contrast lumbar spine from 06/04/24 reviewed Assessment/ Plan : Lumbar radiculopathy Recommendation of BL RFA L5-S1. Risks, benefits of procedure discussed and patient verbalized understanding. Admits to anti- coagulant use or medical history of diabetes. Protocol for discontinuation/ continuation of medications akiko procedure discussed. Minimal anesthesia provided, if clinically indicated, consisting of Versed and Fentanyl. All questions answered. I have spent greater than 30 minutes on patient care today. Dr Ivey was available by phone for the evaluation of this patient. The time was used to review the medical records including relevant urine studies and Prescription history (MAPs), review of the available imaging, evaluation and examination of the patient, coordination of care with the medical staff and if applicable referring physicians, as well as creation of the medical record PQRS Narrative: Smoking Status Former smoker Hx Alcohol Use (MH) No Home Medications: Ambulatory Orders Montelukast [Singulair] 10 mg PO HS 07/16/19 Linaclotide [Linzess] 290 mcg PO DAILY #30 cap 07/14/23 Fexofenadine HCl [Aicha Allergy] 180 mg PO DAILY PRN 03/04/24 Galcanezumab-Gnlm [Emgality Pen] 120 mg SQ Q30D 03/04/24 Ubrogepant [Ubrelvy] 100 mg PO BID PRN MDD 200 mg 03/04/24 tiZANidine [Zanaflex] 4 mg PO HS 03/04/24 Ibuprofen [Motrin] 800 mg PO TID PRN 05/14/24 Semaglutide [Wegovy] 2.4 mg SQ TU 05/14/24 Sertraline [Zoloft] 100 mg PO HS 05/14/24 HYDROcodone/APAP 10-325MG [[place] 10-325] 1 tab PO DAILY PRN 10/07/24 Ketorolac [Toradol] 10 mg PO Q8HR PRN 10/07/24 Pantoprazole [Protonix] 40 mg PO DAILY 10/07/24 Butalb/Acetaminophen/Caffeine [Eksesr-Jprdqhwm-Dbhi 50-325-40] 1 each PO BID PRN 11/14/24 Controlled Substance Measures - Controlled Substance Measures Is patient prescribed a controlled substance at discharge?: No
== END ==
LOC: PNWHC3 11:05
PROVIDERS: ATTEND Specialist
DX: M47.26 Other spondylosis with radiculopathy, lumbar region (principal); Z88.1 Allergy status to other antibiotic agents; Z88.8 Allergy status to other drugs, medicaments and biological substances; Z91.018 Allergy to other foods; Z88.2 Allergy status to sulfonamides; Z87.891 Personal history of nicotine dependence
CPT/HCPCS: 99211

== ENCOUNTER 2025-01-01 09:36 | Day surgery (SDC) | payer OTHER ==
[2024-12-29 15:20] VITALS: BMI 26.6
[2025-01-01 09:58] VITALS: RESP 16; TEMP 97.4
[2025-01-01] MEDS: IV FLUID CONTINUATION 1,000 ML IV ONE ×2 (10:12→10:41)
[2025-01-01] MEDS: LACTATED RINGERS 1,000 ML IV SCH (10:13)
[2025-01-01] MEDS ORDERED: fentaNYL (PF) 50 MCG/ML 2 ML AMP ONE (10:48)
[2025-01-01] MEDS ORDERED: ROPIVACAINE 5MG/ML 20ML VIAL ONE (10:48)
[2025-01-01] MEDS ORDERED: MIDAZOLAM 2 MG/2 ML VIAL ONE (10:48)
[2025-01-01] MEDS: IV FLUID CONTINUATION 300 ML IV ONE (11:25)
--- NOTE | 2025-01-01 11:38 | FL ---
EXAMINATION TYPE: FL guided pain mgmt statistic Intraoperative/procedural fluoroscopic services were provided. CLINICAL INDICATION:Female, 49 years old with history of RF LUMBAR; , [facility] FINDINGS: Fluoroscopic images demonstrating RF lumbar. No radiographic evidence for complication. Total fluoroscopy time is 59.7 seconds. DAP: [id number] mGym2 Please see the operative/procedural note for further details. [facility], , 01/01/2025 11:36 AM
[2025-01-01 11:47] VITALS: BP 134/81; PULSE 59
--- NOTE | 2025-01-01 12:53 | P.PCN ---
Date of Procedure: 01/01/25 Procedure(s) Performed: PREOPERATIVE DIAGNOSIS: 1-Lumbar Spondylosis with Facet Arthropathy without myelopathy. POSTOPERATIVE DIAGNOSIS: 1- Lumbar Spondylosis with Facet Arthropathy without myelopathy. PROCEDURES :Bilateral Radiofrequency thermocoagulation, L4 , L5 medial branch, with fluoroscopic guidance (fluoroscopy images in the radiology department) ( to denervate the facet joint at bilateral L5-S1 levels ). ANESTHESIA: Moderate sedation with intravenous versed 2 mg and fentaneyl 100 mcg. (Sedation start time 10:48, end time 11:15 ) EBL: Minimal PROCEDURE INDICATION: The patient with low back pain secondary to lumbar facet arthropathy who had more than 50% relief of her pain with previous diagnostic lumbar medial branch block with bupivacaine. PROCEDURE DESCRIPTION / TECHNIQUE: The patient was seen and identified in the preoperative area. Risks, benefits, complications, including but not limited to risk of infection ,bleeding , allergic reactions to the medications and no complete pain releife , and alternatives were discussed with the patient, the patient agreed to proceed with the procedure and signed the consent. IV was started. Vital signs remained stable throughout the procedure. Patient was taken to the OR and time out was completed. The patient was placed in the prone position on the procedure table. The lumber area was prepped and draped in the usual sterile fashion. . Vital signs were closely monitored during the procedure .IV sedation was used during the procedure to decrease patients anxiety. Using AP and then oblique fluoroscopy, the ``eye of the Bird dog corresponding to the connection between the superior and transverse articular processes of right L4, and L5 were identified, marked, and localized with 1% lidocaine. Subsequently, a 18 guage(VENOM )100-mm radiofrequency cannula with a 10-mm active tip was advanced guided by fluoroscopy to each of the``eyes of the Bird dog at right L4, and L5. Each site then underwent sensory testing at 50 Hz and 0 to 1 volt and motor testing at 2.5 Hz and 0 to 3 volt with local stimulation, but no radicular symptoms down the legs. Thereafter each sites underwent radiofrequency thermocoagulation at 80 degrees celsius for 90 seconds after injecting 0.5 ml of PF Ropivacaine 1ml, then after the thermocoagulation done , 1 ml of the block solution containing Depo-Medrol 20 mg and 3 ml of Ropivacaine 0.5% was injected at the right L4 , and L5 , levels after negative aspiration of CSF and blood and with no paresthesias. Cannulas were retracted while injecting lidocaine 1% until the needle is out. The same procedure was repeated at the level of Left L4, and L5 levels. At the end of the procedure, the skin was cleansed and bandages were applied. COMPLICATIONS: No acute complications. DISPOSITION / PLANS: The patient was placed in a supine position and transferred to the recovery area in a stable condition for observation and was discharged from the recovery room after meeting discharge criteria. Home discharge instructions given to the patient by the staff. The patient was reexamined prior to discharge. The patient will schedule a follow up in the clinic in 2-4 weeks.
== END 2025-01-01 11:54 | disposition home or self-care (01) ==
LOC: ORPAIN 09:36
PROVIDERS: ATTEND Specialist
DX: M47.816 Spondylosis without myelopathy or radiculopathy, lumbar region (principal)
CPT/HCPCS: 64635; J2250; J3010; J2795; 99152; 99153

== ENCOUNTER → 2025-01-26 | Outpatient (CLI) | payer OTHER ==
[2025-01-26 11:29] VITALS: BP 109/77; PULSE 96; RESP 16; TEMP 97.1
--- NOTE | 2025-01-28 10:59 | P.PAINPG ---
Objective - Vital Signs Vital signs: Vital Signs Temp 97.1 F L 01/26/25 11:24 Pulse 96 01/26/25 11:24 Resp 16 01/26/25 11:24 BP 109/77 01/26/25 11:24 Pulse Ox 98 01/26/25 11:24 FiO2 Intake & Output 01/25/25 01/26/25 01/26/25 18:59 06:59 18:59 Weight 79.379 kg PQRS Measure Charge Sheet Mode of Arrival: Ambulatory Comment: HISTORY OF PRESENT ILLNESS: A 49 yr old female presents today w severe and chronic LBP > 1 yr secondary to radiculopathy, spondylosis and facet arthropathy without myelopathy for evaluation s/p BL RFA L5-S1. Pt states she experienced 90 % pain relief s/p procedure. Pt states pain level is provoked at 7 /10 in intensity, constant, localized in the lower lumbar spine, predominantly axial, dull in character without shooting pain. Pain is provoked by walking for periods > 10 min. Pain is alleviated by PT x 8 wks which she is currently in, physician guided home exercises 4-5 times weekly since Mar 2024, heat, ice, medications, topical, repositioning and rest . Interventional procedures include BL RFA L5-S1 (01/02) Medications include [place], Flexeril, Toradol, Tyl, Ibu, BioFreeze, Icy-Hot & Wegovy REVIEW OF ORGAN SYSTEMS: CONSTITUTIONAL: No fevers or chills. No recent weight loss. NEUROLOGICAL: + numbness and tingling along the distal extremities. No seizure disorders or headaches. MUSCULOSKELETAL: + pain PSYCHIATRIC: Denies current depression or suicidal thoughts. Physical Examinations : Constitutional : Cooperative , not in acute distress . Neurologic : Cranial nerve II to XII intact. No focal neurological deficits. Psychiatric : alert & oriented x 3. Matching mood & appropriate affect. Judgment & insight intact. Musculoskeletal : Cervical Spine Motor strength in the deltoid and biceps: Normal right side. Normal Left side Motor strength biceps and the wrist extensors: Normal right side . Normal left side Motor strength in the triceps muscle: Normal right side. Normal left side Deep tendon reflexes: Normal at the biceps. Normal at Brachioradialis. Normal at triceps Vertebral body tenderness to deep palpation over Cervical facet loading test: positive bilaterally Spurling test: positive bilaterally Neck distraction test: positive bilaterally Calvin sign: positive bilaterally Lumbar spine Motor strength lower extremities ,thigh and legs 5/5 Right side , 5/5 Left side Deep tendon reflexes : Normal Knee Jerk. Normal Ankle Jerk Vertebral body tenderness over Enriquez Test positive Lumbar facet Loading Test: positive Right / positive Left L5-S1 Taut bands w twitch response over BL L2-S1 Range of motion of the lumbar spine Flexion 30 degrees, extension 10 degrees Straight Leg Raise test: Left/ Right positive at degrees Alexander test: positive right / positive left. Severe tenderness over the Sacroiliac joint on the Right / Left sides Gaenslen test: positive bilaterally Seated flexion test: positive bilaterally. Sacral spine : Severe tenderness over the Sacroiliac joint: right side / left side Range of motion: Flexion of the lumbar spine <60 degrees Range of motion: Extension of the lumbar spine <20 degrees Gaenslen's Test positive Alexander test: positive right side / left side Thigh Thrust Test Sacral Thrust Test Imaging: MRI non contrast lumbar spine from 06/04/24 reviewed Assessment/ Plan : Lumbar radiculopathy Recommendation of BL TPIs L2-X1 #1. Risks, benefits of procedure discussed and patient verbalized understanding. Robaxin 500mg #90. Use, side effects, adverse reactions, safe storage discussed. All questions answered. I have spent greater than 30 minutes on patient care today. Dr Ivey was a vailable by phone for the evaluation of this patient. The time was used to review the medical records including relevant urine studies and Prescription history (MAPs), review of the available imaging, evaluation and examination of the patient, coordination of care with the medical staff and if applicable referring physicians, as well as creation of the medical record - Pain Location Bilateral Lower Back Non-Pharmacological Interventions: Exercise, Heat, Home Exercise, Inactivity, Physical Therapy, Position/Reposition, Relaxation Technique, Stretching Pharmacological Interventions: Block, Epidural, PRN Medication PQRS Narrative: Smoking Status Former smoker Blood Pressure 109/77 Pain Intensity [Bilateral 7 Lower Back] Scale Used Numeric (1 - 10) Hx Alcohol Use (MH) No Home Medications: Ambulatory Orders Montelukast [Singulair] 10 mg PO HS 07/16/19 Linaclotide [Linzess] 290 mcg PO DAILY #30 cap 07/14/23 Fexofenadine HCl [Aicha Allergy] 180 mg PO DAILY PRN 03/04/24 Galcanezumab-Gnlm [Emgality Pen] 120 mg SQ Q30D 03/04/24 Ubrogepant [Ubrelvy] 100 mg PO BID PRN MDD 200 mg 03/04/24 tiZANidine [Zanaflex] 4 mg PO HS 03/04/24 Ibuprofen [Motrin] 800 mg PO TID PRN 05/14/24 Semaglutide [Wegovy] 2.4 mg SQ TU 05/14/24 Sertraline [Zoloft] 100 mg PO HS 05/14/24 HYDROcodone/APAP 10-325MG [[place] 10-325] 1 tab PO DAILY PRN 10/07/24 Ketorolac [Toradol] 10 mg PO Q8HR PRN 10/07/24 Pantoprazole [Protonix] 40 mg PO DAILY 10/07/24 Butalb/Acetaminophen/Caffeine [Crojzl-Drjosujg-Iqhr 50-325-40] 1 each PO BID PRN 11/14/24 methocarbamoL [Robaxin] 500 mg PO TID PRN 30 Days #90 tab 01/26/25 Controlled Substance Measures - Controlled Substance Measures Is patient prescribed a controlled substance at discharge?: No
== END ==
LOC: PNWHC3 11:15
PROVIDERS: ATTEND Specialist
DX: M47.26 Other spondylosis with radiculopathy, lumbar region (principal); Z88.0 Allergy status to penicillin; Z88.2 Allergy status to sulfonamides; Z91.018 Allergy to other foods; Z88.8 Allergy status to other drugs, medicaments and biological substances; Z87.891 Personal history of nicotine dependence
CPT/HCPCS: 99211